=== PATIENT | male | born 1965 | race Caucasian/White ===

== ENCOUNTER 2021-08-10 15:30 | Inpatient (IN) | payer OTHER, MEDICAID, SELFPAY ==
[~2021-08-10] VITALS: Ht 177.8 cm; Wt 72.6 kg
[2021-08-10 15:33] VITALS: BP 132/75
--- NOTE | 2021-08-10 15:47 | NUR ---
LAB AT BEDSIDE COLLECTING BLOODWORK
--- NOTE | 2021-08-10 15:52 | NUR ---
SUNDAY VELEZ COLLECTED AND HANDED TO FITTER PLACER BEDSIDE
--- NOTE | 2021-08-10 15:53 | NUR ---
56 y/o male biba from [facility], pt reported to have low glucose, on scene glucose was 63, pt was given oral glucose with glucagon 1mg IM. [facility] reports their accucheck stated error 3x post glucose. Upon arrival pt glucose 90. Pt is A&Ox3 and GCS 15 at this time. Pt is verbal, but experincing lethargy and general weakness at this time. Skin is dry and intact, but bruising noted on patient R arm. Dialysis shunt noted on pt L upper chest and L arm. Edema noted on bilateral LE, non-pitting, +1. Pt denies any CP, SOB, N/V, Fever/Chills, Couch at this time. No pain noted. HOB of elevated, pt placed on bedside litigation paralegal, and bedrails x2 up. ERMD made aware of patient status. pmh: htn, dm2, parkinsons, esrd nka
--- NOTE | 2021-08-10 16:14 | NUR ---
XRAY AT PATIENT BEDSIDE
[2021-08-10 16:31] LABS: PROTHROMBIN TIME 12.1 secs (10.8-13.4)
[2021-08-10 16:32] LABS: ALBUMIN 1.9 g/dL (3.4-5.0); ANION GAP 12.4 (8-16); CARBON DIOXIDE 27.3 mmol/L (21-32); POTASSIUM 4.7 mmol/L (3.5-5.1); TOTAL BILIRUBIN 0.3 mg/dL (0.0-1.0)
[2021-08-10 16:35] LABS: BASOPHILS # (AUTO) 0.2 K/uL (0.00-0.22); BASOPHILS % (AUTO) 2.4 % (0.0-2.0); EOSINOPHILS # (AUTO) 0.2 K/uL (0-0.4); EOSINOPHILS % (AUTO) 2.7 % (0.0-4.0); HEMATOCRIT 30.3 % (36-52); HEMOGLOBIN 10.1 g/dL (12.0-18.0); LYMPHOCYTES # (AUTO) 0.8 K/uL (2.0-11.5); LYMPHOCYTES % (AUTO) 11.4 % (20.5-51.1); MEAN CORPUSCULAR HEMOGLOBIN 32 pg (27-31); MEAN CORPUSCULAR HGB CONC 33 g/dL (33-37); MEAN CORPUSCULAR VOLUME 95.7 fL (80-94); MONOCYTES # (AUTO) 0.5 K/uL (0.8-1.0); MONOCYTES % (AUTO) 6.6 % (1.7-9.3); NEUTROPHILS # (AUTO) 5.5 K/uL (1.8-7.7); NEUTROPHILS % (AUTO) 76.9 % (42.2-75.2); PLATELET COUNT (AUTO) 242 K/uL (140-450); RED BLOOD CELL COUNT(AUTO) 3.17 MIL/uL (4.20-6.10); RED CELL DISTRIBUTION WIDTH 16.2 % (11.6-13.7); WHITE BLOOD COUNT (AUTO) 7.1 K/uL (4.8-10.8)
[2021-08-10 16:45] LABS: CREATININE 5.3 mg/dL (0.6-1.3)
[2021-08-10] MEDS ORDERED: MIRABULK PO (17:13)
[2021-08-10] MEDS ORDERED: ZINC50TA76 PO (17:13)
[2021-08-10] MEDS ORDERED: ASCO500T95 PO (17:13)
[2021-08-10] MEDS ORDERED: TUBE5SOL28 TD (17:13)
[2021-08-10] MEDS ORDERED: HUMSLIDE (17:13)
[2021-08-10] MEDS ORDERED: VALP-22 PO (17:13)
[2021-08-10] MEDS ORDERED: ATOR40TA PO (17:13)
[2021-08-10] MEDS ORDERED: KEP500 PO (17:13)
[2021-08-10] MEDS ORDERED: ONDA-188 PO (17:13)
[2021-08-10] MEDS ORDERED: ASPI-1205 PO (17:13)
[2021-08-10] MEDS ORDERED: SEVE800T6 PO (17:13)
[2021-08-10] MEDS ORDERED: PAX10 PO (17:13)
[2021-08-10] MEDS ORDERED: ACET-8386 PO (17:13)
[2021-08-10] MEDS ORDERED: PANT40EC PO (17:13)
[2021-08-10] MEDS ORDERED: AMLO10TA PO (17:13)
[2021-08-10] MEDS ORDERED: AMAN-72 PO (17:13)
[2021-08-10] MEDS ORDERED: AMOX-999 PO (17:13)
[2021-08-10] MEDS ORDERED: BUS5 PO (17:13)
--- NOTE | 2021-08-10 17:43 | NUR ---
Patient appears to be resting comfortably in bed. Vital Signs within normal limits. Respirations even and unlabored.
--- NOTE | 2021-08-10 19:20 | NUR ---
Pt report given to ANTONY HINSON. Transfer of care at this time.
--- NOTE | 2021-08-10 19:48 | NUR ---
Changed and cleaned patient, Patient had water diarrhea X one episode, Patient reported, had diarrhea today since received medication for constipation yesterday.
--- NOTE | 2021-08-10 20:21 | NUR ---
Patient had abdominal pain, pain rate 8/10, Dr. Main notified.
[2021-08-10] MEDS ORDERED: MORPHINE SULFATE 2 MG/ML SYR IVP ONE (20:35)
--- NOTE | 2021-08-10 20:50 | NUR ---
Accu check 87, Dr. Main notified.
--- NOTE | 2021-08-10 21:02 | NUR ---
Patient transfer to CT scan via gurney with doctor of radiology.
--- NOTE | 2021-08-10 21:18 | NUR ---
Patient returned from CT scan.
[2021-08-10] MEDS ORDERED: DEXT 5% / NACL 0.9% 1,000 ML IV SCH (21:50)
[2021-08-10] MEDS ORDERED: INSULIN LISPRO SLIDING SCALE 100 UNITS/ML VIAL SUBQ PRN (21:50)
[2021-08-10] MEDS ORDERED: BLOOD GLUCOSE MONITORING 1 DEV DEV FS SCH (21:50)
--- NOTE | 2021-08-10 22:35 | NUR ---
Patient will be admitted to care of Dr. Langford. Admited to TELE. Will go to room 112A. Belongings list completed. Report to ANTONY Mckeon.
[2021-08-10 23:00] VITALS: BP 199/91
--- NOTE | 2021-08-10 23:00 | NUR ---
RECEIVED PATIENT FROM ER, TRANSFERRED TO BED SAFELY. VS TAKEN AND RECORDED. TELEMONITORING INITIATED., SR NOTED. PATIENT CRYING AND YELLING FOR SEVERE ABDOMINAL PAIN. MD MADE AWARE, AWAITING ORDER. ADMISSION DOCUMENTATION DONE. IV FLUIDS STARTED ORDERED.WILL CONTINUE TO MONITOR PATIENT.
[2021-08-10] MEDS ORDERED: MORPHINE SULFATE 2 MG/ML SYR IVP PRN (23:20)
[2021-08-10] MEDS ORDERED: MORPHINE SULFATE 2 MG/ML SYR IVP SCH (23:25)
[2021-08-10] MEDS ORDERED: MORPHINE SULFATE 2 MG/ML SYR ONE (23:25)
[2021-08-10] MEDS ORDERED: ONDANSETRON 4 MG/2 ML VIAL IVP PRN (23:40)
[2021-08-11] MEDS ORDERED: CLONIDINE HYDROCHLORIDE 0.1 MG TAB PO PRN (00:25)
--- NOTE | 2021-08-11 01:10 | NUR ---
PATIENT MEDICATED FOR NAUSEA AND PAIN. BP ELEVATED, MD MADE AWARE AND GIVEN CLONIDINE ORDERED. WILL CONTINUE TO MONITOR AND ASSESS PATIENT.
[2021-08-11 04:00] VITALS: BP 156/94
--- NOTE | 2021-08-11 04:10 | NUR ---
MRSA NARES AND UA COLLECTED AND SENT TO LAB.
[2021-08-11 06:10] LABS: APPEARANCE,URINE CLEAR (CLEAR); BILIRUBIN,URINE NEGATIVE (NEGATIVE); BLOOD, URINE 1+ (NEGATIVE); COLOR,URINE YELLOW (YELLOW); LEUKOCYTE ESTERASE ,URINE 2+ (NEGATIVE); NITRITE, URINE NEGATIVE (NEGATIVE); UGLUCOSE NEGATIVE (NEGATIVE)
[2021-08-11] MEDS: BLOOD GLUCOSE MONITORING 1 DEV DEV FS SCH ×4 (06:53→20:18)
[2021-08-11] MEDS ORDERED: MAG SULF 2000 MG/WATER PREMIX 50 ML IV PRN (07:05)
[2021-08-11] MEDS ORDERED: DOCUSATE SODIUM 100 MG GELCAP PO PRN (07:05)
[2021-08-11] MEDS ORDERED: POTASSIUM CHLORIDE 10 MEQ TABER PO PRN (07:05)
[2021-08-11] MEDS ORDERED: LORazepam 2 MG/ML VIAL IVP PRN (07:05)
[2021-08-11] MEDS ORDERED: busPIRone 5 MG TAB PO PRN (07:05)
[2021-08-11] MEDS ORDERED: ACETAMINOPHEN 325 MG TAB PO PRN (07:05)
[2021-08-11] MEDS ORDERED: ZOLPIDEM 10 MG TAB PO PRN (07:05)
--- NOTE | 2021-08-11 07:46 | NUR ---
RECEIVED REPORT FROM NURSE TRANSITIONAL NURSE. PT STABLE
[2021-08-11 08:00] VITALS: BP 161/77
[2021-08-11] MEDS: ASPIRIN 81 MG TAB.CHEW PO SCH (08:24)
[2021-08-11] MEDS: ASCORBIC ACID 500 MG TAB PO SCH (08:24)
[2021-08-11] MEDS: ZINC SULF 220 MG CAP PO SCH (08:25)
[2021-08-11] MEDS: SEVELAMER CARBONATE 800 MG TAB PO SCH ×3 (08:25→17:03)
[2021-08-11] MEDS: amLODIPine 5 MG TAB PO SCH (08:25)
[2021-08-11] MEDS: levETIRAcetam 100 MG/ML ORASYR PO SCH ×3 (08:26→17:03)
[2021-08-11] MEDS: VALPROIC ACID 250 MG/5 ML UDC PO SCH ×2 (08:26→20:19)
[2021-08-11] MEDS: PARoxetine 10 MG TAB PO SCH (08:26)
[2021-08-11] MEDS: POLYETHYLENE GLYCOL 17 GM/PKT PO SCH (08:27)
[2021-08-11] MEDS ORDERED: ZINC 200 MG PO SCH (09:00)
[2021-08-11] MEDS ORDERED: AMANTADINE 100 MG CAP PO SCH (09:00)
--- NOTE | 2021-08-11 09:21 | NUR ---
PATIENT HAS BEEN SCREENED AND CATEGORIZED HIGH NUTRITION RISK. PATIENT WILL BE SEEN WITHIN 1-2 DAYS OF ADMISSION. SCARLET H[address]MON[address] RD Addendum: 08/11/21 at [address] RECEIVED REFERRAL AND CONSULT FOR UNCONTROLLED DIABETES AND PRESSURE INJURY
[2021-08-11] MEDS: MORPHINE SULFATE 2 MG/ML SYR IVP PRN ×3 (10:07→22:09)
[2021-08-11] MEDS: ONDANSETRON 4 MG/2 ML VIAL IVP PRN ×2 (10:07→20:18)
--- NOTE | 2021-08-11 10:32 | NUR ---
MEDICATED PT FOR PAIN AND NAUSEA. PT STATED HE IS UNABLE TO "HANDLE SOLID FOODS". WOUND CARE WAS PERFORMED WITH WOUND CARE NURSE MILES. PT TOLERATED WELL. CALL LIGHT IN REACH. ALL SAFETY MEASURES IN PLACE
[2021-08-11 12:00] VITALS: BP 141/39
--- NOTE | 2021-08-11 12:07 | NUR ---
WOUND CARE EVALUATION NOTE: SKIN ASSESSMENT DONE WITH PRIMARY RN, PT. ADMITTED WITH PRESSURE INJURY TO [facility] AND SHARIF SCALE AT HIGH RISK, PT. IS AAX4 , VERBALIZES NEEDS AND UNDERSTANDING OF WOUND CARE PLAN AND INTERVENTIONS FOR PRESSURE INJURY MANAGEMENT. LEFT UPPER EXTREMITY AV FISTULA WITH PALPABLE THRILL. SKIN INTACT. BOWEL AND BLADDER INCONTINENT. MULTIPLE DRY SCABS AND OLD HEALED SCARS TISSUE TO BILATERAL LOWER LEGS. POC DISCUSSED WITH PRIMARY RN. COMORBIDITIES RELATED TO DELAY WOUND HEALING AND FURTHER SKIN BREAKS INFECTION, DM, ANEMIA. CKD WITH HD. DECREASE MOBILITY AND FUNCTIONAL ABILITIES AND HOB ELEVATED THE MAJORITY OF TIMES DUE TO MEDICAL REASONS. INTEGUMENTARY: -PRESSURE INJURY STAGE 4 TO SACRAL COCCYX [id number] UNDERMINING FROM 7 OCLOCK TO 12 OCLOCK 2.8CM DEEP, WOUND BED 70 % GRANULATION TISSUE WITH 30 % THIN LOOSE YELLOW SLOUGH TISSUE, MODERATE AMOUNT SEROUS DRAINAGE, NO ODOR, CAROLYN- WOUND SKIN BLANCHABLE REDNESS MOIST AND INTACT. -GROINS AND SCROTAL AREA, SKIN MOIST AND INTACT -BILATERAL HEELS DRY CALLUS, COLD TO TOUCH RECOMMENDATIONS -SACRALCOCCYX WOUND CX -CLEANSE SACRAL COCCYX WITH WOUND CARE SOLUTION, PACK WOUND WITH THERAHONEY DRESSING SHEET AND COVER WITH ABD PAD, SECURED WITH TAPE QD AND PRN IF SOILING -APPLY SKIN PREP TO BILATERAL HEELS BID AND AEROPLANE PILOT -APPLY HYDRAGUARD TO GROINS AND SCROTAL AREAS BID AND PRN IF SOILING -TURN AND REPOSITION PATIENT Q 2H -ASSESS AND MONITOR SKIN CONDITION DURING POSITION CHANGE -OFFLOAD BILATERAL HEELS BY PLACING PILLOWS UNDER CALVES AT ALL TIMES, UNLESS OTHERWISE CONTRAINDICATED -PRESSURE REDISTRIBUTION SURFACE THERAPY -KEEP SKIN CLEAN AND DRY AT ALL TIMES.
--- NOTE | 2021-08-11 12:19 | NUR ---
INSULIN HELD PER MD. BG 158. DR. SCHREIBER STATED HE IS OK WITH BG OVER 150 TO REDUCE CHANCE OF PT BECOMING HYPOGLYCEMIC
[2021-08-11] MEDS: HYDRAGUARD CREAM TP SCH (12:41)
[2021-08-11] MEDS: THERAHONEY WOUND DRESSING TP SCH (12:42)
--- NOTE | 2021-08-11 12:44 | NUR ---
SPOKE TO DR MIKAELA MD TO ORDER DIALYSIS FOR TODAY. DIALYSIS NURSE NOTIFIED
[2021-08-11] MEDS ORDERED: THERAHONEY WOUND DRESSING TP SCH (13:00)
--- NOTE | 2021-08-11 13:49 | NUR ---
08/11/21 RD INITIAL ASSESSMENT COMPLETED PLEASE REFER TO NUTRITION ASSESSMENT UNDER CARE ACTIVITY FOR ESTIMATED NUTRITIONAL NEEDS. 1. CONTINUE RENAL DIET TOLERATED 2. RECOMMEND NEPRO AND CONNOR BID PER RD PROTOCOL 3. MONITOR BLOOD GLUCOSE LEVELS AND PO INTAKE 4. RD TO FOLLOW-UP 3-5 DAYS, MODERATE RISK CHRISTIAN HAMMOND, RD
--- NOTE | 2021-08-11 14:07 | NUR ---
DIALYSIS NURSE AT BEDSIDE. NO S/S OF DISTRESS. CALL LIGHT IN REACH. ALL SAFETY MEASURES IN PLACE
--- NOTE | 2021-08-11 14:17 | NUR ---
DC PLANNING: THE PATIENT PRESENTED FROM [facility] WITH C/O HYPOGLYCEMIA AND ALOC. H/O DM, ESRD, PARKINSONS AND HTN. GLUCOSE IN THE FIELD 40-50, GIVEN GLUCAGON. NEPHROLOGY CONSULT, UA + FOR BACTERIA AND WBC'S, STARTED ON ROCEPHIN. CM SPOKE WITH THE PATIENT AT BEDSIDE, HE STATES THAT HE'S BEEN AT [facility] FOR ONE DAY BUT DOESN'T KNOW WHY HE'S THERE AND WANTS TO GET BACK TO THE [facility]. STATED THAT CM COULD CALL HIS GIRLFRIEND SABINE ([phone]) DID NOT WANT CM TO CALL HIS DAUGHTER FARHAN WHO IS HIS PRIMARY CONTACT ON THE FACE SHEET. DANNY THEN SPOKE WITH XIOMARA AT [facility], CONFIRMED THAT PATIENT WAS RECEIVED BY THEM FROM [facility] AND WAS AT [facility] PRIOR TO THAT. HE DID NOT WANT TO RETURN TO [facility] AND WAS PLACED IN [place].THE PATIENT GOES TO [facility] ON ,, FROM 4:30 AM TO 8 AM AND USES [facility] TRANSPORT. CM CALLED HIS GIRLFRIEND BUT THERE WAS NO ANSWER. DC PLAN IS TO RETURN TO [facility], PER XIOMARA THEY ARE WORKING ON SENDING HIM TO A SISTER FACILITY CLOSER TO [place]. CM WILL FOLLOW.
[2021-08-11 16:00] VITALS: BP 160/27
--- NOTE | 2021-08-11 19:38 | NUR ---
ENDORSED PT TO TOTER NURSE.
[2021-08-11 20:00] VITALS: BP 164/42
[2021-08-11] MEDS: ATORVASTATIN 20 MG TAB PO SCH (20:19)
[2021-08-12] VITALS: BP 145/43
[2021-08-12] MEDS: HYDRAGUARD CREAM TP SCH ×2 (00:40→13:09)
[2021-08-12 04:00] VITALS: BP 158/48
[2021-08-12] MEDS: BLOOD GLUCOSE MONITORING 1 DEV DEV FS SCH ×4 (05:44→21:00)
[2021-08-12] MEDS: MORPHINE SULFATE 2 MG/ML SYR IVP PRN ×2 (06:02→10:05)
--- NOTE | 2021-08-12 06:59 | NUR ---
PER LAB NEED NEW ORDER FOR CX. NEW AEROBIC CX ORDER PLACED.
[2021-08-12 07:08] LABS: BASOPHILS # (AUTO) 0.2 K/uL (0.00-0.22); BASOPHILS % (AUTO) 2.5 % (0.0-2.0); EOSINOPHILS # (AUTO) 0.3 K/uL (0-0.4); EOSINOPHILS % (AUTO) 4.2 % (0.0-4.0); HEMATOCRIT 25.8 % (36-52); HEMOGLOBIN 8.7 g/dL (12.0-18.0); LYMPHOCYTES # (AUTO) 1.3 K/uL (2.0-11.5); LYMPHOCYTES % (AUTO) 17.6 % (20.5-51.1); MEAN CORPUSCULAR HEMOGLOBIN 32 pg (27-31); MEAN CORPUSCULAR HGB CONC 34 g/dL (33-37); MEAN CORPUSCULAR VOLUME 95.1 fL (80-94); MONOCYTES # (AUTO) 0.6 K/uL (0.8-1.0); MONOCYTES % (AUTO) 8.4 % (1.7-9.3); NEUTROPHILS # (AUTO) 4.8 K/uL (1.8-7.7); NEUTROPHILS % (AUTO) 67.3 % (42.2-75.2); PLATELET COUNT (AUTO) 226 K/uL (140-450); RED BLOOD CELL COUNT(AUTO) 2.71 MIL/uL (4.20-6.10); RED CELL DISTRIBUTION WIDTH 16.8 % (11.6-13.7); WHITE BLOOD COUNT (AUTO) 7.1 K/uL (4.8-10.8)
--- NOTE | 2021-08-12 07:30 | NUR ---
RECEIVED REPORT FROM CAMPUS WELLNESS COORDINATOR NURSE.
[2021-08-12 08:00] VITALS: BP 167/57
[2021-08-12 08:19] LABS: ANION GAP 9.3 (8-16); CARBON DIOXIDE 29.4 mmol/L (21-32); POTASSIUM 4.7 mmol/L (3.5-5.1)
[2021-08-12 08:45] LABS: CREATININE 4.3 mg/dL (0.6-1.3)
[2021-08-12] MEDS: ONDANSETRON 4 MG/2 ML VIAL IVP PRN ×3 (09:27→23:32)
[2021-08-12] MEDS: ASCORBIC ACID 500 MG TAB PO SCH (09:31)
[2021-08-12] MEDS: ASPIRIN 81 MG TAB.CHEW PO SCH (09:31)
[2021-08-12] MEDS: PARoxetine 10 MG TAB PO SCH (09:32)
[2021-08-12] MEDS: SEVELAMER CARBONATE 800 MG TAB PO SCH ×3 (09:33→17:31)
[2021-08-12] MEDS: ZINC SULF 220 MG CAP PO SCH (09:33)
[2021-08-12] MEDS: VIT-B COMP/VIT-C/FOLIC ACID 1 TAB PO SCH (09:33)
[2021-08-12] MEDS: VALPROIC ACID 250 MG/5 ML UDC PO SCH ×2 (09:33→21:21)
[2021-08-12] MEDS: amLODIPine 5 MG TAB PO SCH (09:34)
[2021-08-12] MEDS: POLYETHYLENE GLYCOL 17 GM/PKT PO SCH (09:34)
[2021-08-12] MEDS: levETIRAcetam 100 MG/ML ORASYR PO SCH ×3 (09:36→17:31)
--- NOTE | 2021-08-12 09:46 | NUR ---
PT COMPLAINED OF NAUSEA AND PAIN 02/17 IN ABD. WILL MEDICATE WHEN DUE. PT STABLE. CALL LIGHT IN REACH.. ALL SAFETY MEASURES IN PLACE
[2021-08-12 12:00] VITALS: BP 151/56
--- NOTE | 2021-08-12 12:02 | NUR ---
P.T. NOTES P.T. EVAL COMPLETED; REFER TO EVAL FOR DETAILS.
[2021-08-12] MEDS ORDERED: MORPHINE SULFATE 2 MG/ML SYR IVP PRN ×2 (12:40→12:45)
[2021-08-12] MEDS: THERAHONEY WOUND DRESSING TP SCH (13:09)
[2021-08-12] MEDS: MORPHINE SULFATE 4 MG/ML SYR IVP PRN ×2 (14:37→21:33)
--- NOTE | 2021-08-12 14:42 | NUR ---
PT COMPLAINED OF PAIN. MEDICATED FOR PAIN. ORDER ENTERED FOR LABS AND KUB. AWAITING RESULTS
[2021-08-12 15:00] LABS: AMYLASE 18 U/L (25-115); LIPASE 6 U/L (73-393)
[2021-08-12 16:00] VITALS: BP 148/44
--- NOTE | 2021-08-12 17:52 | NUR ---
PT COMPLAINED OF NAUSEA. PT MEDICATED AND EDUCATED ON POSITIONING FOR REDUCED NAUSEA. PT VERBALIZED UNDERSTANDING. CALL LIGHT IN REACH. ALL SAFETY MEASURES IN PLACE
--- NOTE | 2021-08-12 19:35 | NUR ---
ENDORSED PT TO APPAREL CUTTER NURSE.
[2021-08-12 20:00] VITALS: BP 158/45
[2021-08-12] MEDS ORDERED: MUPIROCIN CA NASAL 2% 1GM TUBE NS SCH (21:15)
[2021-08-12] MEDS ORDERED: CHLORHEXADINE GLUC 2% CLOTH TP SCH (21:15)
[2021-08-12] MEDS: ATORVASTATIN 20 MG TAB PO SCH (21:23)
[2021-08-13] VITALS: BP 168/38
[2021-08-13] MEDS: HYDRAGUARD CREAM TP SCH ×2 (01:00→13:00)
[2021-08-13 04:00] VITALS: BP_SYST 143; BP_SYST 170; BP_DIAS 47; BP_DIAS 68
[2021-08-13] MEDS: ONDANSETRON 4 MG/2 ML VIAL IVP PRN ×2 (06:56→13:23)
[2021-08-13] MEDS: MORPHINE SULFATE 4 MG/ML SYR IVP PRN (06:56)
[2021-08-13 07:05] LABS: BASOPHILS # (AUTO) 0.2 K/uL (0.00-0.22); BASOPHILS % (AUTO) 2.6 % (0.0-2.0); EOSINOPHILS # (AUTO) 0.4 K/uL (0-0.4); EOSINOPHILS % (AUTO) 6.7 % (0.0-4.0); HEMATOCRIT 27.6 % (36-52); HEMOGLOBIN 9.4 g/dL (12.0-18.0); LYMPHOCYTES # (AUTO) 1.5 K/uL (2.0-11.5); LYMPHOCYTES % (AUTO) 23.2 % (20.5-51.1); MEAN CORPUSCULAR HEMOGLOBIN 32 pg (27-31); MEAN CORPUSCULAR HGB CONC 34 g/dL (33-37); MEAN CORPUSCULAR VOLUME 94.2 fL (80-94); MONOCYTES # (AUTO) 0.5 K/uL (0.8-1.0); MONOCYTES % (AUTO) 8.4 % (1.7-9.3); NEUTROPHILS # (AUTO) 3.8 K/uL (1.8-7.7); NEUTROPHILS % (AUTO) 59.1 % (42.2-75.2); PLATELET COUNT (AUTO) 209 K/uL (140-450); RED BLOOD CELL COUNT(AUTO) 2.93 MIL/uL (4.20-6.10); RED CELL DISTRIBUTION WIDTH 16.2 % (11.6-13.7); WHITE BLOOD COUNT (AUTO) 6.4 K/uL (4.8-10.8)
[2021-08-13] MEDS: BLOOD GLUCOSE MONITORING 1 DEV DEV FS SCH ×3 (07:20→16:48)
[2021-08-13 07:21] LABS: ANION GAP 8.6 (8-16); CARBON DIOXIDE 30.1 mmol/L (21-32); POTASSIUM 4.7 mmol/L (3.5-5.1)
[2021-08-13 07:32] LABS: CREATININE 5.6 mg/dL (0.6-1.3)
--- NOTE | 2021-08-13 07:40 | NUR ---
RECEIVED REPORT FROM OBSTETRICS/GYNECOLOGY NURSE NURSE. RN ENDORSED PT'S BLOOD SUGAR IS 58, APPLE JUICE WAS GIVEN PER REPORT. PT DOESN'T HAVE PRN D50, DR SCHREIBER DOING ROUNDS AND MADE AWARE WITH ORDER FOR PRN D50. ALSO MADE AWARE OF CH CREATININE 5.3. DR STRATTON, CONSULTING GOVERNMENT RELATIONS DIRECTOR ALSO MADE AWARE OF CREATININE LEVEL. PT AWAKE IN BED. BREATHING SYMMETRICAL. FLACC O. CALL LIGHT WITHIN REACH. ALL SAFETY MEASURES IN PLACE.
[2021-08-13] MEDS ORDERED: DEXTROSE 50% 50 ML SYR IVP PRN ×2 (07:50→08:25)
[2021-08-13 08:00] VITALS: BP 137/46
--- NOTE | 2021-08-13 08:00 | NUR ---
RE-CHECKED PT'S BLOOD SUGAR, WENT UP TO 70. PRN D50 NOT NEEDED AT THIS TIME. PT IS ASYMPTOMATIC, AWAKE AND ALERT. WILL CONTINUE TO MONITOR.
[2021-08-13] MEDS ORDERED: DEXT 5% /NACL 0.9% 1,000 ML IV SCH (08:25)
[2021-08-13] MEDS: POLYETHYLENE GLYCOL 17 GM/PKT PO SCH (09:00)
[2021-08-13] MEDS: levETIRAcetam 100 MG/ML ORASYR PO SCH ×3 (09:00→17:00)
[2021-08-13] MEDS: ZINC SULF 220 MG CAP PO SCH (09:35)
[2021-08-13] MEDS: ASCORBIC ACID 500 MG TAB PO SCH (09:35)
[2021-08-13] MEDS: amLODIPine 5 MG TAB PO SCH (09:35)
[2021-08-13] MEDS: VIT-B COMP/VIT-C/FOLIC ACID 1 TAB PO SCH (09:36)
[2021-08-13] MEDS: SEVELAMER CARBONATE 800 MG TAB PO SCH ×3 (09:36→17:11)
[2021-08-13] MEDS: ASPIRIN 81 MG TAB.CHEW PO SCH (09:36)
[2021-08-13] MEDS: PARoxetine 10 MG TAB PO SCH (09:36)
[2021-08-13] MEDS: VALPROIC ACID 250 MG/5 ML UDC PO SCH (09:37)
--- NOTE | 2021-08-13 11:54 | NUR ---
PT MADE AWARE OF DISCHARGE ORDER. PT STATED TO ONLY CALL SABINE (JENNIFER) AND NOT THE DAUGHTER (FARHAN). CALLED SABINE [phone], DIDN'T ANSWER, LEFT MESSAGE. CALLED [facility], SPOKE WITH SHAHZAD TO OBTAIN PT'S ROOM NUMBER, PT WILL BE GOING TO ROOM 18B.
[2021-08-13 12:00] VITALS: BP 144/54
--- NOTE | 2021-08-13 12:32 | NUR ---
CONTACTED [facility] TRANSPORTATION TO ARRANGE TRANSPORT FOR PATIENT. PICKUP TIME IS AT 1622 AND WILL BE TRANSPORTED BACK TO [facility] IN ROOM 18-B Addendum: 08/13/21 at 1245 by Simeon So RN RN RESERVATION #[id number]. TRANSPORTATION CALL BACK NUMBER IS [phone]
[2021-08-13] MEDS: THERAHONEY WOUND DRESSING TP SCH (13:00)
--- NOTE | 2021-08-13 13:12 | NUR ---
CALLED SABINE ESPARZA) AGAIN AND MADE AWARE OF PT'S DISCHARGE BACK TO [facility].
--- NOTE | 2021-08-13 13:20 | NUR ---
PT PULLED OUT IV LINE ON RAC. RE-INSERTED A NEW LINE ON RFA 20G, NO S/SX OF INFILTRATION NOTED.
--- NOTE | 2021-08-13 15:20 | NUR ---
CALLED [facility] AND SPOKE WITH LARRY TO GIVE REPORT.
[2021-08-13 16:00] VITALS: BP 154/45
--- NOTE | 2021-08-13 16:19 | NUR ---
PT PULLED OUT RFA IV LINE AGAIN. PT IS FOR DISCHARGE, AWAITING STOPPERER ASSEMBLER AT 1622.
--- NOTE | 2021-08-13 16:59 | NUR ---
FOLLOW UP CALL MADE TO [facility] TRANSPORTATION REGARDING BEAUTY THERAPIST, SPOKE WITH LEONORA. BEAUTY THERAPIST TIME IS MOVED TO 1830. PT AWARE.
--- NOTE | 2021-08-13 18:46 | NUR ---
PT DISCHARGED TO [facility] VIA [facility] TRANSPORT WITH BELONGINGS AND PAPERWORKS, IN STABLE CONDITION.
[2021-08-14] MEDS ORDERED: EPOETIN ALFA-EPBX 10,000 UNITS/ML VIAL SUBQ SCH (09:00)
== END 2021-08-13 18:45 | DRG 637 ==
LOC: MED 15:30 → MTU 21:54
PROVIDERS: ADMIT General Practice; ATTEND General Practice
PROC: 5A1D70Z Performance of Urinary Filtration, Intermittent, Less than 6 Hours Per Day (ICD-10-PCS; principal; 2021-08-11)
DX: E11.649 Type 2 diabetes mellitus with hypoglycemia without coma (principal); E43 Unspecified severe protein-calorie malnutrition; G93.41 Metabolic encephalopathy; I12.0 Hypertensive chronic kidney disease with stage 5 chronic kidney disease or end stage renal disease; N39.0 Urinary tract infection, site not specified; E11.22 Type 2 diabetes mellitus with diabetic chronic kidney disease; N17.0 Acute kidney failure with tubular necrosis; N18.6 End stage renal disease; D63.8 Anemia in other chronic diseases classified elsewhere; Z20.822 Contact with and (suspected) exposure to COVID-19; L89.159 Pressure ulcer of sacral region, unspecified stage; K21.9 Gastro-esophageal reflux disease without esophagitis; E83.52 Hypercalcemia; G20 Parkinson's disease; E78.5 Hyperlipidemia, unspecified; F32.A Depression, unspecified; Z90.49 Acquired absence of other specified parts of digestive tract; Z68.23 Body mass index [BMI] 23.0-23.9, adult; Z89.421 Acquired absence of other right toe(s); Z87.828 Personal history of other (healed) physical injury and trauma; Z79.899 Other long term (current) drug therapy; Z79.82 Long term (current) use of aspirin
CPT/HCPCS: 36415; 71045; 74018; 80048; 80053; 81001; 82150; 82550; 82948; 83036; 83605; 83690; 83735; 84100; 84484; 85025; 85610; 85730; 86886; 86900; 86901; 87040; 87070; 87081; 87086; 87186; 93005; 96374; 97112; 97163-GP; 99291; J0696; J1644; J2060; J2270; J2405; J7060; Q0092

== ENCOUNTER 2021-09-09 13:40 | Inpatient (IN) | payer OTHER, MEDICAID, SELFPAY ==
[~2021-09-09] VITALS: Ht 167.6 cm; Wt 72.6 kg
[~2021-09-09 13:40] MED LIST: ACET-8386 PO; AMAN-72 PO; AMLO10TA PO; ASCO500T95 PO; ASPI-1205 PO; ATOR40TA PO; BUS5 PO; KEP500 PO; MIRABULK PO; ONDA-188 PO; PANT40EC PO; PAX10 PO; SEVE800T6 PO; TUBE5SOL28 TD; VALP-22 PO; ZINC50TA76 PO
--- NOTE | 2021-09-09 13:43 | NUR ---
BIBA BLS TO ER BED 9
[2021-09-09 13:44] VITALS: BP 144/76
--- NOTE | 2021-09-09 13:56 | NUR ---
56 Y/O Male BIBA for "missed H/D" Pt is AOX 4, able to make needs known, resp even and unlabored. Denies SOB. Edema noted to BUE/BLE +3. A/V Shunt to left arm noted with +B/T heard upon auscultation. ADI Midline noted, pt denies pain at site. PmHx: ESRD, schizo affective, seizures, DM, MDD, HTN Allergies: Metformin Home meds: See Chart
--- NOTE | 2021-09-09 14:10 | NUR ---
Radiology at bedside to perform CXR
[2021-09-09 14:35] LABS: ALBUMIN 1.7 g/dL (3.4-5.0); ANION GAP 10.5 (8-16); CARBON DIOXIDE 29.9 mmol/L (21-32); POTASSIUM 4.4 mmol/L (3.5-5.1); TOTAL BILIRUBIN 0.3 mg/dL (0.0-1.0)
[2021-09-09 14:54] LABS: BASOPHILS # (AUTO) 0.1 K/uL (0.00-0.22); BASOPHILS % (AUTO) 1.3 % (0.0-2.0); EOSINOPHILS # (AUTO) 0.4 K/uL (0-0.4); EOSINOPHILS % (AUTO) 6.7 % (0.0-4.0); HEMATOCRIT 27.4 % (36-52); HEMOGLOBIN 8.6 g/dL (12.0-18.0); LYMPHOCYTES # (AUTO) 1.3 K/uL (2.0-11.5); LYMPHOCYTES % (AUTO) 19.1 % (20.5-51.1); MEAN CORPUSCULAR HEMOGLOBIN 31 pg (27-31); MEAN CORPUSCULAR HGB CONC 32 g/dL (33-37); MONOCYTES # (AUTO) 0.8 K/uL (0.8-1.0); MONOCYTES % (AUTO) 11.7 % (1.7-9.3); NEUTROPHILS # (AUTO) 4.1 K/uL (1.8-7.7); NEUTROPHILS % (AUTO) 61.2 % (42.2-75.2); PLATELET COUNT (AUTO) 169 K/uL (140-450); RED BLOOD CELL COUNT(AUTO) 2.79 MIL/uL (4.20-6.10); RED CELL DISTRIBUTION WIDTH 14.9 % (11.6-13.7); WHITE BLOOD COUNT (AUTO) 6.6 K/uL (4.8-10.8)
[2021-09-09 15:06] LABS: CREATININE 7.5 mg/dL (0.6-1.3)
--- NOTE | 2021-09-09 15:15 | NUR ---
COVID-19 swabs collected and sent to lab.
[2021-09-09] MEDS ORDERED: ONDANSETRON 4 MG ODT PO PRN (15:55)
[2021-09-09] MEDS ORDERED: DOCUSATE SODIUM 100 MG GELCAP PO PRN (15:55)
[2021-09-09] MEDS ORDERED: POTASSIUM CHLORIDE 10 MEQ TABER PO PRN (15:55)
[2021-09-09] MEDS ORDERED: amLODIPine 5 MG TAB PO PRN (15:55)
[2021-09-09] MEDS ORDERED: ACETAMINOPHEN 325 MG TAB PO PRN (15:55)
[2021-09-09] MEDS ORDERED: guaiFENesin DM 200/20 MG-10 ML 10 ML UDC PO PRN (15:55)
[2021-09-09] MEDS ORDERED: ZOLPIDEM 5 MG TAB PO PRN (15:55)
[2021-09-09] MEDS ORDERED: busPIRone 5 MG TAB PO PRN (15:55)
[2021-09-09] MEDS ORDERED: ONDANSETRON 4 MG/2 ML VIAL IM/IVP PRN (15:55)
--- NOTE | 2021-09-09 16:03 | NUR ---
Pt report given to TEGAN HARDY. Transfer of care at this time.
[2021-09-09] MEDS ORDERED: MULT-2253 PO (16:09)
[2021-09-09] MEDS ORDERED: FERR325E14 PO (16:09)
[2021-09-09] MEDS ORDERED: CYCL-711 PO (16:09)
[2021-09-09] MEDS ORDERED: ACET-2619 PO (16:09)
[2021-09-09] MEDS ORDERED: NITR0.4S23 SL (16:09)
[2021-09-09] MEDS ORDERED: BUS5 PO (16:09)
[2021-09-09] MEDS ORDERED: MIRABULK PO (16:09)
[2021-09-09] MEDS ORDERED: PAX10 PO (16:09)
[2021-09-09] MEDS ORDERED: LISI-487 PO (16:09)
[2021-09-09] MEDS ORDERED: SEVE800T6 PO (16:09)
[2021-09-09] MEDS ORDERED: VITA1TAB44 PO (16:09)
[2021-09-09] MEDS ORDERED: METO-485 PO (16:09)
[2021-09-09] MEDS ORDERED: SYN.05 PO (16:09)
[2021-09-09] MEDS ORDERED: CARV12.5 PO (16:09)
[2021-09-09] MEDS ORDERED: GABA300C PO (16:09)
[2021-09-09] MEDS ORDERED: ASPI-1822 PO (16:09)
[2021-09-09] MEDS ORDERED: PANT40EC PO (16:09)
[2021-09-09] MEDS ORDERED: ZINC220C9 PO (16:09)
[2021-09-09] MEDS ORDERED: ONDA4SOL8 PO (16:09)
[2021-09-09] MEDS ORDERED: DIVA125E1 PO (16:09)
[2021-09-09] MEDS ORDERED: ATOR40TA PO (16:09)
[2021-09-09] MEDS ORDERED: [UNRECOGNIZED DRUG - CODE] SQ (16:09)
[2021-09-09] MEDS ORDERED: TAMS0.4C96 PO (16:09)
--- NOTE | 2021-09-09 16:09 | NUR ---
Note gunjan in EDM - 09/09/21 at 1648 by FROYLAN Patient will be admitted to care of . Admited to [g ED.ADMIT]. Will go to room[]. Belongings list completed. Report to [].
--- NOTE | 2021-09-09 16:09 | NUR ---
Patient will be admitted to care of . Admited to TELE. Will go to room 114. Belongings list completed. Report to CLINTON HARDY.
--- NOTE | 2021-09-09 16:15 | NUR ---
PATIENT ADMITTED TO ROOM 114 FROM ED VIA GURNEY. PATIENT IS AAOX3, ABLE TO ANSWER QUESTIONS APPROPRIATELY. RIGHT UPPER ARM MIDLINE IV INTACT AND ASYMPTOMATIC, RIGHT UPPER ARM PERIPHERAL IV 18G INTACT AND ASYMPTOMATIC. LEFT UPPER ARM AV SHUNT WITH + BRUIT AND + THRILL. CALL LIGHT PLACED WITHIN REACH. DR. AL NOTIFIED OF ADMISSION, AWAITING FURTHER ORDERS FOR HEMODIALYSIS TX.
[2021-09-09] MEDS ORDERED: SLIDE SUBQ (16:20)
--- NOTE | 2021-09-09 16:30 | NUR ---
Patient noted to have existing wounds upon arrival to ER. Photos taken of wound and placed in chart. Wound covered with dressing. Physician informed.
[2021-09-09 17:18] LABS: CHOL/HDL RATIO 2.1 (1-4.5); FREE T4 (FREE THYROXINE) 0.92 ng/dL (0.76-1.46); PHOSPHORUS 5.3 mg/dL (2.5-4.9); THYROID STIMULATING HORMONE 0.33 uIU/mL (0.34-3.74)
[2021-09-09] MEDS ORDERED: cefTRIAXone 1,000 MG VIAL ONE (17:57)
[2021-09-09] MEDS: levETIRAcetam 500 MG TAB PO SCH (18:10)
[2021-09-09] MEDS: SEVELAMER CARBONATE 800 MG TAB PO SCH (18:10)
[2021-09-09 18:13] LABS: PROTHROMBIN TIME 10.6 secs (10.8-13.4)
[2021-09-09 18:27] VITALS: BP 156/73
--- NOTE | 2021-09-09 19:25 | NUR ---
RECEIVED REPORT FROM MORNING NURSE FOR CONTINUITY OF CARE. [id number] AWAKE AND ALERT, RESTING ON BED. BREATHING EVEN AND UNLABORED, ON ROOM AIR. PATIENT IV SITE ON ADI G 18 INTACT WITH ONGOING ABX ROCEPHIN, INFUSING WELL. PATIENT ALSO HAVE A MIDLINE AT [facility], AWAITING ORDER IF OKAY TO USE. PARVEEN WITH AV FISTULA, + BRUIT, = THRILL. NO COMPLAINTS OF PAIN. WILL CONTINUE TO MONITOR PATIENT.
--- NOTE | 2021-09-09 20:00 | NUR ---
ASSISTED TO THE BATHROOM, USES WALKER, STEADY GAIT OBSERVED. PATIENT HAD A BM AND SAFELY ASSISTED BACK TO BED. PATIENT REFUSED DUE DEPAKENE AND STATED HE DOESN'T HAVE SEIZURE, EDUCATED ON THE NEED FOR HIS HISTORY OF SEIZURE BUT INSISTED HE DOESN'T NEED THE MEDICATION. WILL CONTINUE TO MONITOR PATIENT.
[2021-09-09] MEDS: ATORVASTATIN 20 MG TAB PO SCH (20:14)
[2021-09-09] MEDS: VALPROIC ACID 250 MG/5 ML UDC PO SCH (20:17)
--- NOTE | 2021-09-09 21:00 | NUR ---
MISAEL RN, ALEXANDRO MURILLO. CONSENT FOR MISAEL SHOWN.
--- NOTE | 2021-09-09 23:30 | NUR ---
HD DONE, 2 L OUT. PATIENT RESTING ON BED. NO UNTOWARD S/SX OBSERVED. WILL CONTINUE TO MONITOR PATIENT.
[2021-09-10] VITALS: BP 156/70
[2021-09-10 04:00] VITALS: BP 159/68
[2021-09-10 06:29] LABS: BASOPHILS # (AUTO) 0.1 K/uL (0.00-0.22); EOSINOPHILS # (AUTO) 0.4 K/uL (0-0.4); EOSINOPHILS % (AUTO) 4.8 % (0.0-4.0); HEMATOCRIT 26.3 % (36-52); HEMOGLOBIN 8.6 g/dL (12.0-18.0); LYMPHOCYTES # (AUTO) 1.2 K/uL (2.0-11.5); LYMPHOCYTES % (AUTO) 16.3 % (20.5-51.1); MEAN CORPUSCULAR HEMOGLOBIN 32 pg (27-31); MEAN CORPUSCULAR HGB CONC 33 g/dL (33-37); MEAN CORPUSCULAR VOLUME 96.6 fL (80-94); MONOCYTES # (AUTO) 0.9 K/uL (0.8-1.0); MONOCYTES % (AUTO) 11.6 % (1.7-9.3); NEUTROPHILS # (AUTO) 4.9 K/uL (1.8-7.7); NEUTROPHILS % (AUTO) 66.3 % (42.2-75.2); PLATELET COUNT (AUTO) 174 K/uL (140-450); RED BLOOD CELL COUNT(AUTO) 2.72 MIL/uL (4.20-6.10); WHITE BLOOD COUNT (AUTO) 7.4 K/uL (4.8-10.8)
[2021-09-10 07:05] LABS: ANION GAP 9.3 (8-16); CARBON DIOXIDE 29.3 mmol/L (21-32); POTASSIUM 4.6 mmol/L (3.5-5.1)
--- NOTE | 2021-09-10 07:20 | NUR ---
REPORT GIVEN TO MORNING SHIFT RN FOR CONTINUITY OF CARE. PATIENT STABLE, RESTING ON BED.
--- NOTE | 2021-09-10 07:20 | NUR ---
RECEIVED REPORT FROM EMERGENCY DISPATCHER NURSE FOR CONTINUITY OF CARE. PT ASLEEP IN BED. BREATHING SYMMETRICAL ON ROOM AIR. FLACC O. AV FISTULA ON LEFT ARM. WITH ADI 18G ON SALINE LOCK. CALL LIGHT WITHIN REACH. ALL SAFETY MEASURES IN PLACE.
[2021-09-10 08:00] VITALS: BP 161/82
[2021-09-10] MEDS ORDERED: busPIRone 5 MG TAB PO PRN (08:11)
[2021-09-10 08:27] LABS: CREATININE 5.2 mg/dL (0.6-1.3)
[2021-09-10] MEDS: amLODIPine 5 MG TAB PO PRN (08:47)
[2021-09-10] MEDS: ASPIRIN 81 MG TAB.CHEW PO SCH (08:48)
[2021-09-10] MEDS: SEVELAMER CARBONATE 800 MG TAB PO SCH ×3 (08:48→17:37)
[2021-09-10] MEDS: VIT-B COMP/VIT-C/FOLIC ACID 1 TAB PO SCH (08:50)
[2021-09-10] MEDS: AMANTADINE 100 MG CAP PO SCH (08:51)
[2021-09-10] MEDS: levETIRAcetam 500 MG TAB PO SCH ×3 (08:51→17:00)
[2021-09-10] MEDS: PANTOPRAZOLE 40 MG TABEC PO SCH (08:51)
[2021-09-10] MEDS: VALPROIC ACID 250 MG/5 ML UDC PO SCH ×2 (08:51→21:46)
[2021-09-10] MEDS: PARoxetine 10 MG TAB PO SCH (08:51)
[2021-09-10] MEDS ORDERED: INSULIN LISPRO SLIDING SCALE 100 UNITS/ML VIAL SUBQ PRN (09:00)
[2021-09-10] MEDS ORDERED: DEXTROSE 50% 50 ML SYR IVP PRN (09:00)
--- NOTE | 2021-09-10 09:01 | NUR ---
PT HAS HX OF DIABETES, OBTAINED ORDER FOR ACCUCHECK. ALSO PT HAS ADI MIDLINE 1 LUMEN, PER PT IT WAS PLACED ABOUT A MONTH AGO AT [place] AND HASN'T BEEN USED. ALSO CREATININE IS 5.[address] BHAKTA. ALSO LEFT MESSAGE TO DR AL, CONSULTING ROOM COOLER INSTALLER
--- NOTE | 2021-09-10 10:08 | NUR ---
PER DR BHAKTA IF IV IS GOOD MAY REMOVE MIDLINE. PT'S ADI IV SITE PATENT, INTACT, NO S/SX OF INFILTRATION NOTED. WILL REMOVE MIDLINE.
--- NOTE | 2021-09-10 10:19 | NUR ---
ADI MIDLINE REMOVED, PT TOLERATED WELL, NO C/O PAIN. NO ACTIVE BLEEDING NOTED. WILL CONTINUE TO MONITOR.
[2021-09-10 12:00] VITALS: BP 151/83
[2021-09-10] MEDS: BLOOD GLUCOSE MONITORING 1 DEV DEV FS SCH ×3 (12:19→21:37)
--- NOTE | 2021-09-10 13:42 | NUR ---
PT STATES HE TAKES GABAPENTIN 300MG TID, NO CURRENT ORDER FOR GABAPENTIN MEDICATION. DR BHAKTA MADE AWARE WITH ORDER FOR GABAPENTIN.
[2021-09-10] MEDS: GABAPENTIN 300 MG CAP PO SCH ×2 (13:48→21:47)
--- NOTE | 2021-09-10 14:53 | NUR ---
SPOKE WITH PHARMACIST REGARDING GABAPENTIN DOSING.
--- NOTE | 2021-09-10 15:00 | NUR ---
PT VERBALIZING WANTING TO GET DISCHARGED TODAY, DR BHAKTA MADE AWARE, PT WILL NOT GET DISCHARGED TODAY DUE TO HIGH BNP LEVEL. CARDIO CONSULTED. EXPLAINED TO PT HEALTH RISKS OF GOING AMA, PT VERBALIZED UNDERSTANDING AND WILL STAY. DR BHAKTA AWARE.
[2021-09-10] MEDS: HYDROcodone/APAP 7.5/325 MG 1 TAB PO PRN (15:02)
--- NOTE | 2021-09-10 15:19 | NUR ---
DR VICTORIA MADE AWARE OF CARDIO CONSULT FOR ELEVATED BNP
--- NOTE | 2021-09-10 15:50 | NUR ---
PT ASLEEP IN BED. BREATHING SYMMETRICAL ON ROOM AIR. WITH LAV FISTULA NOTED WITH (+) BRUIT AND THRILL, NO BLEEDING NOTED. CALL LIGHT WITHIN REACH. ALL SAFETY MEASURES IN PLACE.
[2021-09-10 16:00] VITALS: BP 133/73
[2021-09-10] MEDS ORDERED: GABAPENTIN 300 MG CAP PO SCH (17:00)
--- NOTE | 2021-09-10 19:25 | NUR ---
ENDORSED PT TO WELDING MACHINE OPERATOR ELECTRON BEAM NURSE. PT IN STABLE CONDITION
--- NOTE | 2021-09-10 19:26 | NUR ---
RECEIVED PT FROM AM NURSE ON STABLE CONDITION. AWAKE, ALERT, VERBALLY RESPONSIVE AND ABLE TO MAKE NEEDS KNOWN. AV SHUNT ON LEFT UPPER ARM PATENT. SALINE LOCK 18G ON RIGHT UPPER ARM, WELL INTACT, NO S/S OF INFECTION. DENIES PAIN. ALARM AND CALL LIGHT WITHIN REACH. SAFETY MEASURES IN PLACE. CONTINUE TO MONITOR
[2021-09-10 20:00] VITALS: BP 147/68
[2021-09-10] MEDS: ATORVASTATIN 20 MG TAB PO SCH (21:47)
--- NOTE | 2021-09-10 21:47 | NUR ---
MED GIVEN ORDERED
[2021-09-11] VITALS: BP 152/65
[2021-09-11] MEDS: HYDROcodone/APAP 7.5/325 MG 1 TAB PO PRN ×2 (03:00→15:24)
[2021-09-11 04:00] VITALS: BP 157/67
[2021-09-11] MEDS: BLOOD GLUCOSE MONITORING 1 DEV DEV FS SCH ×3 (06:35→16:57)
--- NOTE | 2021-09-11 06:35 | NUR ---
BLOOD SUGAR CHECKED WAS 76, NO INSULIN NEEDED.
--- NOTE | 2021-09-11 07:15 | NUR ---
ENDORSED PATIENT TO AM NURSE FOR CONTINUITY OF CARE. PT IN STABLE CONDITION.
--- NOTE | 2021-09-11 07:38 | NUR ---
RECEIVED ENDORSEMENT FROM PM SHIFT NURSE THAT PT REST IN BED W/ STABLE CONDITION, ADI 18G SALINE LOCK INTACT. DIALYSIS SHUNT AT [facility]. WILL CONTINUE TO MONITOR
[2021-09-11 08:00] VITALS: BP 171/93
[2021-09-11 08:06] LABS: BASOPHILS # (AUTO) 0.1 K/uL (0.00-0.22); BASOPHILS % (AUTO) 2.1 % (0.0-2.0); EOSINOPHILS # (AUTO) 0.4 K/uL (0-0.4); EOSINOPHILS % (AUTO) 6.3 % (0.0-4.0); HEMATOCRIT 25.6 % (36-52); HEMOGLOBIN 8.3 g/dL (12.0-18.0); LYMPHOCYTES # (AUTO) 1.2 K/uL (2.0-11.5); LYMPHOCYTES % (AUTO) 17.9 % (20.5-51.1); MEAN CORPUSCULAR HEMOGLOBIN 31 pg (27-31); MEAN CORPUSCULAR HGB CONC 33 g/dL (33-37); MEAN CORPUSCULAR VOLUME 96.3 fL (80-94); MONOCYTES # (AUTO) 0.7 K/uL (0.8-1.0); MONOCYTES % (AUTO) 10.9 % (1.7-9.3); NEUTROPHILS # (AUTO) 4.1 K/uL (1.8-7.7); NEUTROPHILS % (AUTO) 62.8 % (42.2-75.2); PLATELET COUNT (AUTO) 182 K/uL (140-450); RED BLOOD CELL COUNT(AUTO) 2.66 MIL/uL (4.20-6.10); RED CELL DISTRIBUTION WIDTH 14.3 % (11.6-13.7); WHITE BLOOD COUNT (AUTO) 6.5 K/uL (4.8-10.8)
[2021-09-11 08:07] LABS: T4 (THYROXINE) 4.8 ug/dL (4.5-12.0)
[2021-09-11 08:15] LABS: ANION GAP 10.1 (8-16); CARBON DIOXIDE 29.9 mmol/L (21-32)
[2021-09-11 08:19] LABS: CREATININE 6.7 mg/dL (0.6-1.3)
[2021-09-11] MEDS: PANTOPRAZOLE 40 MG TABEC PO SCH (08:55)
[2021-09-11] MEDS: amLODIPine 5 MG TAB PO PRN (08:57)
[2021-09-11] MEDS: SEVELAMER CARBONATE 800 MG TAB PO SCH (08:57)
[2021-09-11] MEDS: PARoxetine 10 MG TAB PO SCH (08:57)
[2021-09-11] MEDS: VIT-B COMP/VIT-C/FOLIC ACID 1 TAB PO SCH (09:00)
[2021-09-11] MEDS: ASPIRIN 81 MG TAB.CHEW PO SCH (09:00)
[2021-09-11] MEDS: levETIRAcetam 500 MG TAB PO SCH ×2 (09:00→12:26)
[2021-09-11] MEDS: GABAPENTIN 300 MG CAP PO SCH (09:01)
[2021-09-11] MEDS: AMANTADINE 100 MG CAP PO SCH (09:07)
--- NOTE | 2021-09-11 09:58 | NUR ---
PT'S 0800 BP 171/93, CREATININE 6.7, NORVASC 10MG GIVEN @ 0857. DR. BHAKTA ORDERED DIALYSIS TODAY TODAY. WILL CONTINUE MONITOR
[2021-09-11] MEDS ORDERED: CEPH-588 PO (11:02)
--- NOTE | 2021-09-11 11:05 | NUR ---
WOUND CARE EVALUATION NOTE: SKIN ASSESSMENT DONE. PT. ADMITTED WITH PRESSURE INJURY TO SACRALCOCCYX AND SHARIF SCALE AT HIGH RISK, PT. IS AAX4 , VERBALIZES NEEDS AND UNDERSTANDING OF WOUND CARE PLAN AND INTERVENTIONS FOR PRESSURE INJURY MANAGEMENT. SKIN INTACT. BOWEL AND BLADDER INCONTINENT. MULTIPLE DRY SCABS AND OLD HEALED SCARS TISSUE TO BILATERAL LOWER LEGS. POC DISCUSSED WITH PRIMARY RN. INTEGUMENTARY: -PRESSURE INJURY STAGE 4 TO SACRAL COCCYX [id number] UNDERMINING FROM 9 OCLOCK TO 12 OCLOCK 3 CM DEEP, WOUND BED 80 % GRANULATION TISSUE WITH 20 % THIN LOOSE YELLOW SLOUGH TISSUE, MODERATE AMOUNT SEROUS DRAINAGE, NO ODOR, CAROLYN- WOUND SKIN BLANCHABLE REDNESS MOIST AND INTACT. RECOMMENDATIONS -CLEANSE SACRAL COCCYX WITH WOUND CARE SOLUTION, PACK WOUND WITH ALGINATE DRESSING SHEET AND COVER WITH ISLAND DRESSING SECURED WITH TAPE QD AND PRN IF SOILING -POSITIONING: TURN AND REPOSITION PATIENT Q 2H OR SOONER USE PILLOWS TO KEEP BONY PROMINENCES FROM DIRECT CONTACT WITH SURFACES USE REPOSITIONING WEDGES TO PROVIDE 30-DEGREE ANGLE FOR SIDE LYING POSITIONS OFFLOADING OR FOAM DRESSING TO ALL TUBING TO PREVENT MEDICAL DEVICES RELATED PRESSURE INJURY -RE-EVALUATING AND MANAGING INCONTINENCE MONITOR SKIN CONDITION DURING POSITION CHANGE DO NOT MASSAGE REDNESS, BONY PROMINENCES, DO NOT USE DONUT-TYPE DEVICES FREQUENT CAROLYN-CARE AND PROVIDE BARRIER CREAMS PRN IF SOILING MOISTURE CONTROL BY OFFER BED BENAVIDEZ/URINAL /ABSORBENT PAD TO WICK AND HOLD MOISTURE KEEP SKIN DRY AND PROTECT FROM FRICTION -MANAGE FRICTION/SHEAR/MOBILITY KEEP HOB AT THE LOWEST LEVEL OF ELEVATION NO MORE THAN 30 DEGREE UNLESS OTHERWISE CONTRAINDICATED USE LIFT SHEET OR TRANSFER DEVICE TO MOVE PATIENT AND PREVENT LATERAL SHEER. PROTECT HEELS, ELBOWS BONY PROMINENCES WITH SKIN BERRIES OR FOAM DRESSING IF EXPOSED TO FRICTION OFFLOAD BILATERAL HEELS BY PLACING PILLOWS UNDER CALVES AT ALL TIMES, UNLESS OTHERWISE CONTRAINDICATED -PRESSURE REDISTRIBUTION SURFACE THERAPY -NUTRITION: PLEASE FOLLOW RD RECOMMENDATIONS AND OFFER NUTRITION SUPPLEMENTS IF ORDERED. PLEASE CONTACT WOUND CARE NURSE FOR ANY QUESTION AND CHANGE OF WOUND CONDITION.
--- NOTE | 2021-09-11 11:15 | NUR ---
PATIENT HAS BEEN SCREENED AND CATEGORIZED HIGH NUTRITION RISK. PATIENT WILL BE SEEN WITHIN 1-2 DAYS OF ADMISSION. 09/11/21 RECEIVED CONSULT AND REFERRAL FOR WOUNDS AND PRESSURE INJURY CHRISTIAN HAMMOND RD
--- NOTE | 2021-09-11 11:27 | NUR ---
DC PLANNING: PATIENT HAS AN ORDER TO RETURN TO [facility] AFTER DIALYSIS. FAXED ALL PAPERWORK TO [facility]. CM TO FOLLOW Addendum: 09/11/21 at 1621 by Madeline Thompson RN DC PLANNING: PT IS RETURNING TO [facility]. CAN GO TO ROOM 24B #TO GIVE REPORT [phone]. ARRANGED TRANSPORT WITH Done. MEDICAL TRANSPORT SPOKE WITH [facility] REF # [id number] FINISHED GOODS INSPECTOR TIME 7 PM. NOTIFIED DREW HARDY. CM TO FOLLOW
[2021-09-11 12:00] VITALS: BP 159/81
[2021-09-11] MEDS ORDERED: SEVELAMER CARBONATE 800 MG TAB PO SCH (12:00)
[2021-09-11] MEDS ORDERED: ALGINATE ROPE MC SCH (13:00)
--- NOTE | 2021-09-11 13:50 | NUR ---
PT HAS ORDER TO HAVE DIALYSIS TODAY PER PCP ORDER. DIALYSIS NURSE CALLED. PT STABLE, ALL SCHEDULED MEDS GIVEN AT THIS TIME Addendum: 09/11/21 at 1356 by Malissa Desai RN EXCEPT 1300 DOSE KEPPRA WHICH PT REFUSED MEDS
[2021-09-11 16:00] VITALS: BP 164/79
--- NOTE | 2021-09-11 19:22 | NUR ---
AROUND 1835 NURSE D/C PT TO [facility] THROUGH GURNEY TRANSPORT THAT PROVIDE BY MEDICAL TRANSPORTATION W/ STABLE CONDITION. PT ADMIT TO THE FACILITY D/T MISSING DIALYSIS APPOINTMENT, AND HE FINISH DIALYSIS AROUND 1745 W/ 2.6 LITER REMOVED. NURSE CALLED [facility] PRE DISCHARGE PT. ALL PT BELONG AND D/C INSTRUCTION RELEASE TO PT. IV REMOVED.
[2021-09-12] MEDS ORDERED: AMANTADINE 100 MG CAP PO SCH (09:00)
[2021-09-12] MEDS ORDERED: EPOETIN ALFA-EPBX 10,000 UNITS/ML VIAL SUBQ SCH (09:00)
[2021-09-14] MEDS ORDERED: AMANTADINE 100 MG CAP PO SCH (09:00)
== END 2021-09-11 18:45 | DRG 291 ==
LOC: MED 13:40 → MTU 15:41
PROVIDERS: ADMIT Family Medicine; ATTEND Family Medicine
PROC: 5A1D70Z Performance of Urinary Filtration, Intermittent, Less than 6 Hours Per Day (ICD-10-PCS; principal; 2021-09-09)
PROC: 5A1D70Z Performance of Urinary Filtration, Intermittent, Less than 6 Hours Per Day (ICD-10-PCS; 2021-09-11)
DX: I13.2 Hypertensive heart and chronic kidney disease with heart failure and with stage 5 chronic kidney disease, or end stage renal disease (principal); L89.154 Pressure ulcer of sacral region, stage 4; N18.6 End stage renal disease; I50.43 Acute on chronic combined systolic (congestive) and diastolic (congestive) heart failure; E43 Unspecified severe protein-calorie malnutrition; N17.0 Acute kidney failure with tubular necrosis; D63.8 Anemia in other chronic diseases classified elsewhere; E11.22 Type 2 diabetes mellitus with diabetic chronic kidney disease; Z20.822 Contact with and (suspected) exposure to COVID-19; E78.5 Hyperlipidemia, unspecified; F32.A Depression, unspecified; Z99.2 Dependence on renal dialysis; Z68.25 Body mass index [BMI] 25.0-25.9, adult; Z88.8 Allergy status to other drugs, medicaments and biological substances; Z79.82 Long term (current) use of aspirin; Z79.899 Other long term (current) drug therapy; Z90.49 Acquired absence of other specified parts of digestive tract; Z89.421 Acquired absence of other right toe(s)
CPT/HCPCS: 36415; 71045; 80048; 80053; 82150; 82948; 83036; 83690; 83735; 83880; 84100; 84436; 84439; 84443; 84479; 84484; 85025; 85610; 85730; 87081; 93005; 99285; J0696; J1815; J7060; Q0092

== ENCOUNTER 2022-01-15 10:03 | Inpatient (IN) | payer OTHER, MEDICAID ==
[~2022-01-15] VITALS: Ht 170.2 cm; Wt 43.7 kg
[~2022-01-15 10:03] MED LIST changes: -BUS5 PO; +CARV12.5 PO; +CEPH-588 PO; +CYCL-711 PO; +DIVA125E1 PO; +FERR325E14 PO; +GABA300C PO; +IV Zosyn IV; +LISI-487 PO; +METO-485 PO; +NITR0.4S23 SL; +SLIDE SUBQ; +SYN.05 PO; +TAMS0.4C96 PO; -TUBE5SOL28 TD; +VITA1TAB44 PO; -ZINC50TA76 PO
[2022-01-15 10:06] VITALS: BP 160/68
[2022-01-15] MEDS ORDERED: NACL 0.9% 500 ML IV SCH (10:40)
[2022-01-15] MEDS ORDERED: DEXTROSE 50% 50 ML SYR IVP ONE (10:40)
[2022-01-15 11:44] LABS: HEMATOCRIT 35.4 % (36-52); MEAN CORPUSCULAR HEMOGLOBIN 26 pg (27-31); MEAN CORPUSCULAR HGB CONC 31 g/dL (33-37); MEAN CORPUSCULAR VOLUME 82.6 fL (80-94); RED BLOOD CELL COUNT(AUTO) 4.29 MIL/uL (4.20-6.10); RED CELL DISTRIBUTION WIDTH 21.2 % (11.6-13.7); WHITE BLOOD COUNT (AUTO) 7.2 K/uL (4.8-10.8)
[2022-01-15 12:01] LABS: PLATELET COUNT (AUTO) 109 K/uL (140-450)
[2022-01-15 12:02] LABS: EOSINOPHILS % (MANUAL) 12 % (0-4); LYMPHOCYTES % (MANUAL) 27 % (20-46); MONOCYTES % (MANUAL) 7 % (5-12)
[2022-01-15 12:03] LABS: PROTHROMBIN TIME 12.7 secs (10.8-13.4)
[2022-01-15 12:05] LABS: ANION GAP 12.2 (8-16); ASPARTATE AMINOTRANSFERASE 9 U/L (15-37); CARBON DIOXIDE 30.5 mmol/L (21-32); CHLORIDE 102 mmol/L (98-107); GFR ARICAN-AMERICAN 11 mL/min (>90); GLUCOSE 64 mg/dL (74-106); POTASSIUM 4.7 mmol/L (3.5-5.1); SODIUM SERUM 140 mmol/L (136-145); THYROID STIMULATING HORMONE 7.02 uIU/mL (0.34-3.74); TOTAL BILIRUBIN 0.6 mg/dL (0.0-1.0); UREA NITROGEN, BLOOD 32 mg/dL (7-18)
[2022-01-15 12:08] LABS: CREATININE 6.9 mg/dL (0.6-1.3)
[2022-01-15] MEDS ORDERED: BLOOD GLUCOSE MONITORING 1 DEV DEV FS SCH (14:20)
[2022-01-15] MEDS: DEXT 5% /NACL 0.9% 1,000 ML IV SCH (14:39)
[2022-01-15 16:00] VITALS: BP 162/78
[2022-01-15] MEDS ORDERED: guaiFENesin DM 200/20 MG-10 ML 10 ML UDC PO PRN (17:05)
[2022-01-15] MEDS ORDERED: DOCUSATE SODIUM 100 MG GELCAP PO PRN (17:05)
[2022-01-15] MEDS ORDERED: POTASSIUM CHLORIDE 10 MEQ TABER PO PRN (17:05)
[2022-01-15] MEDS ORDERED: ACETAMINOPHEN 325 MG TAB PO PRN (17:05)
[2022-01-15] MEDS ORDERED: ZOLPIDEM 5 MG TAB PO PRN (17:05)
[2022-01-15] MEDS ORDERED: ONDANSETRON 4 MG/2 ML VIAL IM/IVP PRN (17:05)
[2022-01-15 17:32] LABS: FREE T4 (FREE THYROXINE) 1.4 ng/dL (0.76-1.46); MAGNESIUM 2.4 mg/dL (1.8-2.4); THYROID STIMULATING HORMONE 8.14 uIU/mL (0.34-3.74)
[2022-01-15 17:46] LABS: CHOL/HDL RATIO 1.4 (1-4.5)
[2022-01-15] MEDS: HYDROcodone/APAP 7.5/325 MG 1 TAB PO PRN (18:53)
[2022-01-15] MEDS ORDERED: FERROUS SULFATE 325 MG TABEC PO SCH (21:00)
[2022-01-15] MEDS: DIVALPROEX SPRINKLES 125 MG CAPDR PO SCH (21:52)
[2022-01-15] MEDS: ATORVASTATIN 20 MG TAB PO SCH (21:53)
[2022-01-15] MEDS: lisinopriL 20 MG TAB PO SCH (21:53)
[2022-01-15] MEDS: TAMSULOSIN 0.4 MG CAP PO SCH (21:54)
[2022-01-16 04:00] VITALS: BP 126/67
[2022-01-16] MEDS: DIVALPROEX SPRINKLES 125 MG CAPDR PO SCH ×3 (04:48→20:52)
[2022-01-16 05:52] LABS: BASOPHILS # (AUTO) 0.2 K/uL (0.00-0.22); BASOPHILS % (AUTO) 2.6 % (0.0-2.0); EOSINOPHILS # (AUTO) 0.8 K/uL (0-0.4); HEMATOCRIT 32.9 % (36-52); HEMOGLOBIN 10.3 g/dL (12.0-18.0); LYMPHOCYTES # (AUTO) 1.2 K/uL (2.0-11.5); LYMPHOCYTES % (AUTO) 18.3 % (20.5-51.1); MEAN CORPUSCULAR HEMOGLOBIN 26 pg (27-31); MEAN CORPUSCULAR HGB CONC 31 g/dL (33-37); MEAN CORPUSCULAR VOLUME 82.5 fL (80-94); MONOCYTES # (AUTO) 0.6 K/uL (0.8-1.0); MONOCYTES % (AUTO) 9.4 % (1.7-9.3); NEUTROPHILS # (AUTO) 3.8 K/uL (1.8-7.7); NEUTROPHILS % (AUTO) 57.7 % (42.2-75.2); PLATELET COUNT (AUTO) 83 K/uL (140-450); RED BLOOD CELL COUNT(AUTO) 3.99 MIL/uL (4.20-6.10); RED CELL DISTRIBUTION WIDTH 21.8 % (11.6-13.7); WHITE BLOOD COUNT (AUTO) 6.6 K/uL (4.8-10.8)
[2022-01-16 06:09] LABS: ANION GAP 12.5 (8-16); POTASSIUM 4.5 mmol/L (3.5-5.1)
[2022-01-16] MEDS: LEVOTHYROXINE 0.05 MG TAB PO SCH (06:19)
[2022-01-16 08:00] VITALS: BP 148/83
[2022-01-16] MEDS: levETIRAcetam 500 MG TAB PO SCH ×3 (08:53→16:27)
[2022-01-16] MEDS: lisinopriL 20 MG TAB PO SCH (08:53)
[2022-01-16] MEDS: PANTOPRAZOLE 40 MG TABEC PO SCH (08:53)
[2022-01-16] MEDS: GABAPENTIN 300 MG CAP PO SCH (08:53)
[2022-01-16] MEDS: PARoxetine 10 MG TAB PO SCH (08:54)
[2022-01-16] MEDS: amLODIPine 5 MG TAB PO SCH (08:54)
[2022-01-16] MEDS: ASPIRIN 81 MG TAB.CHEW PO SCH (08:54)
[2022-01-16] MEDS: DEXT 5% /NACL 0.9% 1,000 ML IV SCH (10:14)
[2022-01-16] MEDS: HYDROcodone/APAP 7.5/325 MG 1 TAB PO PRN (10:38)
[2022-01-16 16:00] VITALS: BP 125/77
[2022-01-16 20:10] VITALS: BP 179/62
[2022-01-16] MEDS: ATORVASTATIN 20 MG TAB PO SCH (20:52)
[2022-01-16] MEDS: TAMSULOSIN 0.4 MG CAP PO SCH (20:52)
[2022-01-17 04:00] VITALS: BP 138/65
[2022-01-17 05:24] LABS: BASOPHILS # (AUTO) 0.2 K/uL (0.00-0.22); BASOPHILS % (AUTO) 2.2 % (0.0-2.0); HEMATOCRIT 33.2 % (36-52); HEMOGLOBIN 10.4 g/dL (12.0-18.0); LYMPHOCYTES # (AUTO) 1.5 K/uL (2.0-11.5); LYMPHOCYTES % (AUTO) 20.2 % (20.5-51.1); MEAN CORPUSCULAR HEMOGLOBIN 26 pg (27-31); MEAN CORPUSCULAR HGB CONC 31 g/dL (33-37); MEAN CORPUSCULAR VOLUME 82.5 fL (80-94); MONOCYTES # (AUTO) 0.8 K/uL (0.8-1.0); MONOCYTES % (AUTO) 10.1 % (1.7-9.3); NEUTROPHILS # (AUTO) 4.1 K/uL (1.8-7.7); NEUTROPHILS % (AUTO) 54.5 % (42.2-75.2); PLATELET COUNT (AUTO) 74 K/uL (140-450); RED BLOOD CELL COUNT(AUTO) 4.02 MIL/uL (4.20-6.10); RED CELL DISTRIBUTION WIDTH 22.1 % (11.6-13.7); WHITE BLOOD COUNT (AUTO) 7.5 K/uL (4.8-10.8)
[2022-01-17] MEDS: DIVALPROEX SPRINKLES 125 MG CAPDR PO SCH ×3 (06:01→21:29)
[2022-01-17] MEDS: LEVOTHYROXINE 0.05 MG TAB PO SCH (06:02)
[2022-01-17] MEDS: HYDROcodone/APAP 7.5/325 MG 1 TAB PO PRN (06:09)
[2022-01-17 06:15] LABS: ANION GAP 13.4 (8-16); CARBON DIOXIDE 28.6 mmol/L (21-32); CREATININE 6.6 mg/dL (0.6-1.3)
[2022-01-17 08:00] VITALS: BP 139/64
[2022-01-17] MEDS: amLODIPine 5 MG TAB PO SCH (09:00)
[2022-01-17] MEDS: levETIRAcetam 500 MG TAB PO SCH ×4 (09:00→17:00)
[2022-01-17] MEDS: lisinopriL 20 MG TAB PO SCH (09:00)
[2022-01-17] MEDS: PANTOPRAZOLE 40 MG TABEC PO SCH (09:26)
[2022-01-17] MEDS: VIT-B COMP/VIT-C/FOLIC ACID 1 TAB PO SCH (09:27)
[2022-01-17] MEDS: GABAPENTIN 300 MG CAP PO SCH (09:27)
[2022-01-17] MEDS: PARoxetine 10 MG TAB PO SCH (09:27)
[2022-01-17] MEDS: ASPIRIN 81 MG TAB.CHEW PO SCH (09:28)
[2022-01-17] MEDS: DEXT 5% /NACL 0.9% 1,000 ML IV SCH ×2 (09:43→18:56)
[2022-01-17 16:00] VITALS: BP 133/62
[2022-01-17] MEDS: ATORVASTATIN 20 MG TAB PO SCH (21:29)
[2022-01-17] MEDS: TAMSULOSIN 0.4 MG CAP PO SCH (21:30)
[2022-01-18] VITALS: BP 142/62
[2022-01-18] MEDS: HYDROcodone/APAP 7.5/325 MG 1 TAB PO PRN ×2 (01:59→17:54)
[2022-01-18] MEDS: DIVALPROEX SPRINKLES 125 MG CAPDR PO SCH ×2 (05:50→12:50)
[2022-01-18] MEDS: LEVOTHYROXINE 0.05 MG TAB PO SCH (05:52)
[2022-01-18 06:04] LABS: ANION GAP 10.1 (8-16); CARBON DIOXIDE 31.5 mmol/L (21-32); POTASSIUM 4.6 mmol/L (3.5-5.1)
[2022-01-18 06:06] LABS: BASOPHILS # (AUTO) 0.2 K/uL (0.00-0.22); BASOPHILS % (AUTO) 2.6 % (0.0-2.0); EOSINOPHILS # (AUTO) 1.1 K/uL (0-0.4); EOSINOPHILS % (AUTO) 18.2 % (0.0-4.0); HEMATOCRIT 33.8 % (36-52); HEMOGLOBIN 10.7 g/dL (12.0-18.0); LYMPHOCYTES # (AUTO) 1.4 K/uL (2.0-11.5); LYMPHOCYTES % (AUTO) 23.5 % (20.5-51.1); MEAN CORPUSCULAR HEMOGLOBIN 26 pg (27-31); MEAN CORPUSCULAR HGB CONC 32 g/dL (33-37); MEAN CORPUSCULAR VOLUME 81.8 fL (80-94); MONOCYTES # (AUTO) 0.6 K/uL (0.8-1.0); MONOCYTES % (AUTO) 10.5 % (1.7-9.3); NEUTROPHILS # (AUTO) 2.7 K/uL (1.8-7.7); NEUTROPHILS % (AUTO) 45.2 % (42.2-75.2); PLATELET COUNT (AUTO) 61 K/uL (140-450); RED BLOOD CELL COUNT(AUTO) 4.14 MIL/uL (4.20-6.10); RED CELL DISTRIBUTION WIDTH 21.2 % (11.6-13.7); WHITE BLOOD COUNT (AUTO) 5.9 K/uL (4.8-10.8)
[2022-01-18 08:00] VITALS: BP 128/66
[2022-01-18 08:10] LABS: CREATININE 5.5 mg/dL (0.6-1.3)
[2022-01-18] MEDS: PANTOPRAZOLE 40 MG TABEC PO SCH (08:49)
[2022-01-18] MEDS: ASPIRIN 81 MG TAB.CHEW PO SCH (08:49)
[2022-01-18] MEDS: amLODIPine 5 MG TAB PO SCH (08:50)
[2022-01-18] MEDS: lisinopriL 20 MG TAB PO SCH (08:50)
[2022-01-18] MEDS: levETIRAcetam 500 MG TAB PO SCH ×3 (08:50→17:55)
[2022-01-18] MEDS: GABAPENTIN 300 MG CAP PO SCH (08:51)
[2022-01-18] MEDS: VIT-B COMP/VIT-C/FOLIC ACID 1 TAB PO SCH (08:51)
[2022-01-18] MEDS: PARoxetine 10 MG TAB PO SCH (08:51)
[2022-01-18 14:05] VITALS: BP 128/66
== END 2022-01-18 18:10 | DRG 291 ==
LOC: MED 10:03 → MTU 14:24
PROVIDERS: ADMIT Family Medicine; ATTEND Family Medicine
PROC: 5A1D70Z Performance of Urinary Filtration, Intermittent, Less than 6 Hours Per Day (ICD-10-PCS; principal; 2022-01-15)
PROC: 5A1D70Z Performance of Urinary Filtration, Intermittent, Less than 6 Hours Per Day (ICD-10-PCS; 2022-01-16)
PROC: 5A1D70Z Performance of Urinary Filtration, Intermittent, Less than 6 Hours Per Day (ICD-10-PCS; 2022-01-17)
PROC: 5A1D70Z Performance of Urinary Filtration, Intermittent, Less than 6 Hours Per Day (ICD-10-PCS; 2022-01-18)
DX: I13.2 Hypertensive heart and chronic kidney disease with heart failure and with stage 5 chronic kidney disease, or end stage renal disease (principal); I50.43 Acute on chronic combined systolic (congestive) and diastolic (congestive) heart failure; N18.6 End stage renal disease; N17.0 Acute kidney failure with tubular necrosis; G93.40 Encephalopathy, unspecified; E44.0 Moderate protein-calorie malnutrition; Z20.822 Contact with and (suspected) exposure to COVID-19; L89.159 Pressure ulcer of sacral region, unspecified stage; D64.9 Anemia, unspecified; E78.5 Hyperlipidemia, unspecified; E11.40 Type 2 diabetes mellitus with diabetic neuropathy, unspecified; E11.22 Type 2 diabetes mellitus with diabetic chronic kidney disease; K21.9 Gastro-esophageal reflux disease without esophagitis; F32.A Depression, unspecified; Z79.84 Long term (current) use of oral hypoglycemic drugs; Z79.899 Other long term (current) drug therapy; Z79.82 Long term (current) use of aspirin
CPT/HCPCS: 36415; 70450; 71045; 80048; 80053; 82140; 82150; 82948; 83036; 83605; 83690; 83735; 83880; 84100; 84436; 84439; 84443; 84479; 84484; 85025; 85610; 85730; 87040; 87081; 93005; 96374; 97112; 97116; 97163-GP; 97530; 99285; Q0092

== ENCOUNTER 2022-04-02 17:21 | Inpatient (IN) | payer OTHER, MEDICAID ==
[~2022-04-02] VITALS: Ht 167.6 cm; Wt 69.9 kg
[~2022-04-02 17:21] MED LIST changes: -ACET-8386 PO; -CEPH-588 PO; -IV Zosyn IV; -METO-485 PO; -NITR0.4S23 SL; -ONDA-188 PO; -PANT40EC PO
--- NOTE | 2022-04-02 17:54 | NUR ---
PT BIB ALS RUN FROM DIALYSIS C/O GENERALIZED WEAKNESS. PT ALERT ANSWERS QUESTIONS SLOWLY BUT FALLS BACK ASLEEO. BS 99.
[2022-04-02 17:55] VITALS: BP 157/68
[2022-04-02 17:55] LABS: BASOPHILS # (AUTO) 0.2 K/uL (0.00-0.22); EOSINOPHILS # (AUTO) 0.5 K/uL (0-0.4); EOSINOPHILS % (AUTO) 7.2 % (0.0-4.0); HEMATOCRIT 40.5 % (36-52); HEMOGLOBIN 12.9 g/dL (12.0-18.0); LYMPHOCYTES # (AUTO) 0.8 K/uL (2.0-11.5); LYMPHOCYTES % (AUTO) 11.2 % (20.5-51.1); MEAN CORPUSCULAR HEMOGLOBIN 26 pg (27-31); MEAN CORPUSCULAR HGB CONC 32 g/dL (33-37); MEAN CORPUSCULAR VOLUME 82.3 fL (80-94); MONOCYTES # (AUTO) 0.4 K/uL (0.8-1.0); MONOCYTES % (AUTO) 6.1 % (1.7-9.3); NEUTROPHILS # (AUTO) 5.4 K/uL (1.8-7.7); NEUTROPHILS % (AUTO) 72.5 % (42.2-75.2); PLATELET COUNT (AUTO) 126 K/uL (140-450); RED BLOOD CELL COUNT(AUTO) 4.92 MIL/uL (4.20-6.10); RED CELL DISTRIBUTION WIDTH 17.2 % (11.6-13.7); WHITE BLOOD COUNT (AUTO) 7.4 K/uL (4.8-10.8)
[2022-04-02 18:19] LABS: ACETAMINOPHEN 1.6 ug/ml (10-30); ALBUMIN 3.1 g/dL (3.4-5.0); ANION GAP 13.4 (8-16); ASPARTATE AMINOTRANSFERASE 15 U/L (15-37); CARBON DIOXIDE 32.5 mmol/L (21-32); CHLORIDE 99 mmol/L (98-107); GFR ARICAN-AMERICAN 20 mL/min (>90); GLUCOSE 90 mg/dL (74-106); POTASSIUM 3.9 mmol/L (3.5-5.1); SODIUM SERUM 141 mmol/L (136-145); TOTAL BILIRUBIN 0.9 mg/dL (0.0-1.0); UREA NITROGEN, BLOOD 15 mg/dL (7-18)
[2022-04-02 18:21] LABS: CREATININE 4.1 mg/dL (0.6-1.3)
[2022-04-02 18:22] LABS: SALICYLATE < 2.8 mg/dL (2.8-20.0)
--- NOTE | 2022-04-02 19:42 | NUR ---
COVID-19 swabs collected and sent to lab.
--- NOTE | 2022-04-02 19:55 | NUR ---
Flu swabs collected and sent to lab.
--- NOTE | 2022-04-02 19:56 | NUR ---
Patient had sacral pressure wound - when re-check wound on his body.
--- NOTE | 2022-04-02 20:00 | NUR ---
Took picture sacral area as protocol.
[2022-04-02 20:03] LABS: FREE T4 (FREE THYROXINE) 1.26 ng/dL (0.76-1.46); THYROID STIMULATING HORMONE 2.18 uIU/mL (0.34-3.74)
[2022-04-02] MEDS ORDERED: DIVA125E1 PO (20:18)
[2022-04-02] MEDS ORDERED: PAX10 PO (20:18)
[2022-04-02] MEDS ORDERED: POLY17PD65 PO (20:18)
[2022-04-02] MEDS ORDERED: TAMS0.4C97 PO (20:18)
[2022-04-02] MEDS ORDERED: VITA1TAB44 PO (20:18)
--- NOTE | 2022-04-02 20:18 | NUR ---
Med-rec reviewed.
[2022-04-02] MEDS ORDERED: POTASSIUM CHLORIDE 10 MEQ TABER PO PRN (20:20)
[2022-04-02] MEDS ORDERED: ACETAMINOPHEN 325 MG TAB PO PRN (20:20)
[2022-04-02] MEDS ORDERED: LORazepam 2 MG/ML VIAL IVP PRN (20:20)
[2022-04-02] MEDS ORDERED: ZOLPIDEM 10 MG TAB PO PRN (20:20)
[2022-04-02] MEDS ORDERED: MAG SULF 2000 MG/WATER PREMIX 50 ML IV PRN (20:20)
[2022-04-02] MEDS ORDERED: DOCUSATE SODIUM 100 MG GELCAP PO PRN (20:20)
[2022-04-02] MEDS ORDERED: ONDANSETRON 4 MG/2 ML VIAL IVP PRN (20:20)
[2022-04-02] MEDS ORDERED: MORPHINE SULFATE 2 MG/ML SYR IVP PRN (20:20)
[2022-04-02] MEDS ORDERED: INSULIN LISPRO SLIDING SCALE 100 UNITS/ML VIAL SUBQ PRN (20:25)
--- NOTE | 2022-04-02 21:00 | NUR ---
Patient will be admitted to care of Dr. Gottlieb. Admited to TELE. Will go to room 111A. Belongings list completed. Report to ANTONY Long.
[2022-04-02 21:17] VITALS: BP 150/85
--- NOTE | 2022-04-02 21:17 | NUR ---
RECEIVED PT FROM JUAN JOSE/ ANA MARIA , ALTHOUGH TOO SLEEPY , AROUSABLE , AND ANSWER ALL QUESTION CORRECTLY , NID - O2 SAT WNL , ON TELE MONITOR - SR , IV SITE INTACT AND PATENT , W/ L AV SHUNT . TRANSFER TO BED BY 3 PEOPLE MANUAL LIFT . ADMISSION ASSESSMENT - WILL BE DONE . PLAN OF CARE DISCUSSED AND VERBALIZES UNDERSTANDING BUT NEEDS RE INFORCEMENT DUE TO EASILY TO FALL BACK SLEEP - WILL CHECK BS , PUT PT . IN FALL PREVENTION PROTOCOL , PUT PT. ON S2 PREC. - WILL CONT. TO MONITOR . CALL LIGHT WITHIN REACH . Addendum: 04/03/22 at 0458 by Mercedes Fernandes RN W/ L AV SHUNT ON UPPER ARM - BRUIT
--- NOTE | 2022-04-02 23:11 | NUR ---
BS 56 - WILL MEDICATE.
[2022-04-02] MEDS: DEXTROSE 50% 50 ML SYR IVP PRN (23:12)
[2022-04-02] MEDS: BLOOD GLUCOSE MONITORING 1 DEV DEV FS SCH (23:20)
[2022-04-02] MEDS: DIVALPROEX SPRINKLES 125 MG CAPDR PO SCH (23:34)
[2022-04-02] MEDS: FERROUS SULFATE 325 MG TABEC PO SCH (23:34)
[2022-04-02] MEDS: TAMSULOSIN 0.4 MG CAP PO SCH (23:34)
[2022-04-02] MEDS: GABAPENTIN 300 MG CAP PO SCH (23:36)
[2022-04-02] MEDS: ATORVASTATIN 20 MG TAB PO SCH (23:36)
[2022-04-02] MEDS: lisinopriL 20 MG TAB PO SCH (23:36)
[2022-04-02] MEDS: carvediloL 12.5 MG TAB PO SCH (23:36)
--- NOTE | 2022-04-02 23:36 | NUR ---
FULLY AWAKE , MED GIVEN P.O - NO S/SX OF ASPIRATION NOTED .
--- NOTE | 2022-04-02 23:51 | NUR ---
REFERRED DR. HWANG - BP 150/85 , HR 58 - 60 - PER DR. HWANG HOLD ZESTRIL AND COREG FOR NOW .
[2022-04-03] VITALS: BP 150/86
--- NOTE | 2022-04-03 01:07 | NUR ---
BP RE CHECK - 144 , WILL CONT. TO MONITOR . Addendum: 04/03/22 at 0108 by Mercedes Fernandes RN THE WORD BP IN THE ABOVE NURSE'S NOTE IS AN ERROR ENTRY , INSTEAD OF BS IN BLOOD SUGAR
[2022-04-03 04:00] VITALS: BP 153/82
--- NOTE | 2022-04-03 04:00 | NUR ---
ROUNDS , ON TELE MONITOR , NO S/SX OF ACUTE DISTRESS NOTED , CALL LIGHT WITHIN REACH .
--- NOTE | 2022-04-03 06:09 | NUR ---
BS CHECK 49 - INFORM CHARGE NURSE - WILL MEDICATE D 50/ 50 , PT IS SLEEPY , EASILY AROUSABLE , AAOX4 , WILL FEED PT . - WILL ENDORSE .
[2022-04-03] MEDS: DEXTROSE 50% 50 ML SYR IVP PRN (06:10)
[2022-04-03] MEDS: BLOOD GLUCOSE MONITORING 1 DEV DEV FS SCH ×4 (06:10→21:57)
[2022-04-03] MEDS: GABAPENTIN 300 MG CAP PO SCH (06:56)
[2022-04-03] MEDS: DIVALPROEX SPRINKLES 125 MG CAPDR PO SCH ×3 (06:56→21:57)
[2022-04-03] MEDS: LEVOTHYROXINE 0.025 MG TAB PO SCH (06:56)
--- NOTE | 2022-04-03 06:56 | NUR ---
AWAKE , AAOX4 , SCHED. MEDS P.O GIVEN - NO S/SX OF ASPIRATION NOTED . WILL CONT. TO MONITOR , CALL LIGHT WITHIN REACH . - WILL RE CHECK TO BS - WILL ENDORSE .
--- NOTE | 2022-04-03 07:05 | NUR ---
BS RE CHECK - 152 - WILL ENDORSE .
[2022-04-03 07:21] LABS: BASOPHILS # (AUTO) 0.2 K/uL (0.00-0.22); BASOPHILS % (AUTO) 2.7 % (0.0-2.0); EOSINOPHILS # (AUTO) 0.4 K/uL (0-0.4); EOSINOPHILS % (AUTO) 7.2 % (0.0-4.0); HEMATOCRIT 38.2 % (36-52); LYMPHOCYTES % (AUTO) 16.7 % (20.5-51.1); MEAN CORPUSCULAR HEMOGLOBIN 26 pg (27-31); MEAN CORPUSCULAR HGB CONC 31 g/dL (33-37); MEAN CORPUSCULAR VOLUME 82.9 fL (80-94); MONOCYTES # (AUTO) 0.5 K/uL (0.8-1.0); MONOCYTES % (AUTO) 8.5 % (1.7-9.3); NEUTROPHILS # (AUTO) 3.9 K/uL (1.8-7.7); NEUTROPHILS % (AUTO) 64.9 % (42.2-75.2); PLATELET COUNT (AUTO) 117 K/uL (140-450); RED BLOOD CELL COUNT(AUTO) 4.61 MIL/uL (4.20-6.10); RED CELL DISTRIBUTION WIDTH 17.7 % (11.6-13.7)
[2022-04-03 07:29] LABS: CARBON DIOXIDE 33.4 mmol/L (21-32); POTASSIUM 4.4 mmol/L (3.5-5.1)
--- NOTE | 2022-04-03 07:40 | NUR ---
ENDORSED PT FOR CONT. OF CARE , ON TELE MONITOR , AWAKE .
[2022-04-03 08:00] VITALS: BP 145/68
[2022-04-03 09:21] LABS: CREATININE 5.2 mg/dL (0.6-1.3)
--- NOTE | 2022-04-03 09:51 | NUR ---
PATIENT HAS BEEN SCREENED AND CATEGORIZED HIGH NUTRITION RISK. PATIENT WILL BE SEEN WITHIN 1-2 DAYS OF ADMISSION. 04/03/2210/26/22 RECEIVED [facility] CONSULT AND REFERRAL FOR WOUNDS [address]
[2022-04-03] MEDS: ASPIRIN 81 MG TAB.CHEW PO SCH (09:53)
[2022-04-03] MEDS: levETIRAcetam 500 MG TAB PO SCH ×3 (09:54→17:18)
[2022-04-03] MEDS: FERROUS SULFATE 325 MG TABEC PO SCH ×2 (09:54→21:57)
[2022-04-03] MEDS: carvediloL 12.5 MG TAB PO SCH ×2 (09:54→21:00)
[2022-04-03] MEDS: POLYETHYLENE GLYCOL 17 GM/PKT PO SCH (09:55)
[2022-04-03] MEDS: PARoxetine 10 MG TAB PO SCH (09:55)
[2022-04-03] MEDS: VIT-B COMP/VIT-C/FOLIC ACID 1 TAB PO SCH (09:55)
[2022-04-03] MEDS: lisinopriL 20 MG TAB PO SCH ×2 (09:55→21:58)
[2022-04-03 12:00] VITALS: BP 141/54
--- NOTE | 2022-04-03 12:00 | NUR ---
DISCHARGE PLANNING PATIENT IS A 56-YEAR-OLD MALE ADMITTED AT [facility]/ED ON 04/02/2022. DUE TO GENERAL WEAKNESS DURING HIS REGULAR DIALYSIS TIME. SW MEET WITH PATIENT AT BED SIDE TO DISCUSS AND GATHER PATIENTS COLLATERAL INFORMATION. PER PATIENT HE HAS HOSPITALIZED DUE TO NOT FEELING WELL AFTER HE HAD HIS DIALYSIS AND IS PLACED IN SNF [facility] FOR ABOUT 2 YEARS MAYBE LONGER. PER PATIENT HE WANTS TO GO BACK TO HIS SNF. PATIENT STATED THAT HE HAS GOOD FAMILY SUPPORT FROM HIS DAUGHTER FARHAN BERKOWITZ AND HIS GIRLFRIEND SABINE HER WHO LIVES IN [facility] ABOUT 2-[address] AW[address] FROM [facility]. PER PATIENT HIS DAUGHTER FARHAN BERKOWITZ IS HIS EMERGENCY CONTATC AND MEDICAL DESISION MAKER. PATIENT STATED THAT HE DO NOT HAVE A.D. BUT HAS ALREADY COMPLETED AND IS IN HIS CHART A POLTS ALREADY IN PLACE. PATIENT DECLINED INF. FORMS PROVIDED BY THESE MASTER OF CEREMONIES. PATIENT REPORTED THAT HE HAS HIS PCP MD. ROLY PORTILLO WHO FOLLOWS HIM UP REGULARLY FROM THE [facility]. PATIENT STATED THAT HE GETS GOOD CARE IN SNF AND HAS NO ISSUES WITH MEDICATIONS AND WITH EQUIPMENT, REPORTED HAVING A WHEELCHAIR HIS DME. PATIENT REPORTED THAT HE WOULD LIKE TO RETURN BACK TO [facility] SN[facility] WHEN HE IS READY AND STABLE TO DISCHARGE FROM [facility]. SW CALL [facility] AT TO DISCUSS PATIENT'S STATUS. SW SPOKE WITH ISAIAH WHO REPORTED THAT PATIENT HAS BEEN IN SNF FOR ABOUT 3 YEARS AND CONFIRMED THAT PATIENT ILL BE RETURNING TO SNF UNDER INTERMEDIATE BED HOLD. PER ISAIAH SNF NEEDS UPDATED CLINICALS FROM [facility] ABOUT PATIENT WHEN HE IS CLOSE TO DISCHARGE AND RETURN TO SNF. SW AGREED TO PROVIDE INFORMATION CLOSE TO DISCHARGE. SW CONTACTED PATIENT'S DAUGHTER FARHAN BERKOWITZ AT TO GIVE HER UPDATED INFORMATION ABOUT PATIENT'S STATUS, SW DISCUSS ADMISSION AND REASONS FOR ADMISSION AT [facility],DISCUSS CARE AND DISCHARGE PLAN TO RETURN TO [facility]. PER DAUGHTER AGREED AND THANKED SW FOR INFORMATION AND UPDATE ON PATIENT'S STATUS. SW/CM WILL FOLLOW UP WITH PATIENT NEEDED.
[2022-04-03 16:00] VITALS: BP 137/50
--- NOTE | 2022-04-03 19:30 | NUR ---
RECEIVED REPORT FROM DAY SHIFT NURSE ENRIQUE FOR CONTINUITY OF CARE. PATIENT IS A&O X4. PATIENT IS ON ROOM AIR, BREATHING IS NORMAL WITH SYMMETRICAL RISE AND FALL OF CHEST. IV IS 22G RAC, NO FLUIDS RUNNING AT THIS TIME (SALINE LOCKED). PATIENT IS AWAKE LYING SEMI-FOWLERS IN BED; PLAYING A GAME ON HIS TABLET. BED IS IN LOWEST POSITION WHEELS LOCKED AND CALL LIGHT IN PLACE. WILL CONTINUE TO OBSERVE PATIENT.
[2022-04-03 20:00] VITALS: BP 154/73
[2022-04-03] MEDS ORDERED: GABAPENTIN 300 MG CAP PO SCH (21:00)
[2022-04-03] MEDS: TAMSULOSIN 0.4 MG CAP PO SCH (21:57)
[2022-04-03] MEDS: ATORVASTATIN 20 MG TAB PO SCH (21:57)
--- NOTE | 2022-04-03 22:00 | NUR ---
ADMINISTERED 2100 MEDICATIONS. PATIENT WAS ABLE TO SWALLOW MEDICATIONS WITHOUT ANY ISSUES. REASSESSED PATIENT'S VITALS BEFORE ADMINISTERING MEDICATION, HR WAS 58. COREG (CARVEDILOL) WAS HELD DUE TO PATIENT'S HR BEING < 60. BS WAS OBTAINED; BS WAS 103, NO COVERAGE WAS NEEDED. PATIENT WAS AWAKE LYING IN BED PLAYING ON HIS ELECTRONIC TABLET. BREATHING WAS NORMAL WITH SYMMETRICAL RISE AND FALL OF CHEST. WILL CONTINUE TO OBSERVE PATIENT.
[2022-04-04] VITALS: BP 161/77
--- NOTE | 2022-04-04 00:30 | NUR ---
LOOKED IN ON PATIENT. PATIENT WAS AWAKE LYING SUPINE IN BED WATCHING VIDEOS ON HIS PHONE. ASKED PATIENT IF HE NEEDED ANYTHING, PATIENT STATED NO. ENCOURAGED PATIENT TO TRY AND GET SOME SLEEP. BREATHING WAS NORMAL WITH SYMMETRICAL RISE AND FALL OF CHEST. WILL CONTINUE TO OBSERVE PATIENT.
--- NOTE | 2022-04-04 03:00 | NUR ---
LOOKED IN ON PATIENT. PATIENT WAS SLEEPING, LYING SUPINE COMPLETELY COVERED UP. NO FLUIDS ARE RUNNING AT THIS TIME. BED IS IN LOWEST POSITION, WHEELS LOCKED, CALL LIGHT IN PLACE. WILL CONTINUE TO OBSERVE PATIENT.
[2022-04-04 04:00] VITALS: BP 151/93
[2022-04-04] MEDS: LEVOTHYROXINE 0.025 MG TAB PO SCH (05:55)
[2022-04-04] MEDS: DIVALPROEX SPRINKLES 125 MG CAPDR PO SCH ×2 (05:55→13:00)
--- NOTE | 2022-04-04 06:00 | NUR ---
ADMINISTERED 0500 MEDICATIONS TO PATIENT. PATIENT WAS ABLE TO SWALLOW WITHOUT DIFFICULTY. OBTAINED BS, BS WAS 68; GAVE PATIENT A CUP OF ORANGE JUICE AND ENCOURAGED PATIENT TO DRINK IT. PATIENT TOOK A SIP AND SAID HE DIDN'T WANT ANYMORE. EXPRESSED IMPORTANCE OF DRINKING IT TO HELP BRING BS UP. PATIENT SAID HE'LL DRINK A LITTLE BIT AT A TIME. ASSESSED PATIENT'S WOUND. DRESSING WAS SOILED. REMOVED FOAM DRESSING OVER SACRAL WOUND; GREEN DRAINAGE WAS PRESENT. WOUND WAS CLEANED WITH NS FLUSH AND DRIED WITH 4X4 GAUZE. NEW FOAM DRESSING WAS APPLIED OVER WOUND. PATIENT TOLERATED DRESSING CHANGE WELL; NO PAIN FROM SITE. PATIENT WAS SLEEPING UPON ENTERING THE ROOM. PATIENT LAID ON RIGHT SIDE TO GO BACK TO SLEEP UPON COMPLETION OF DRESSING CHANGE. BREATHING WAS NORMAL WITH SYMMETRICAL RISE AND FALL OF CHEST. WILL CONTINUE TO OBSERVE PATIENT.
[2022-04-04] MEDS: BLOOD GLUCOSE MONITORING 1 DEV DEV FS SCH ×2 (06:06→12:10)
--- NOTE | 2022-04-04 07:30 | NUR ---
ENDORSED TO DAY SHIFT ADZE FOR CONTINUITY OF CARE. PATIENT IS STABLE.
[2022-04-04 08:00] VITALS: BP 138/56
[2022-04-04] MEDS: carvediloL 12.5 MG TAB PO SCH (09:00)
[2022-04-04] MEDS: ASPIRIN 81 MG TAB.CHEW PO SCH (09:00)
[2022-04-04] MEDS: lisinopriL 20 MG TAB PO SCH (09:00)
[2022-04-04] MEDS: POLYETHYLENE GLYCOL 17 GM/PKT PO SCH (09:56)
[2022-04-04] MEDS: levETIRAcetam 500 MG TAB PO SCH ×2 (09:56→13:00)
[2022-04-04] MEDS: VIT-B COMP/VIT-C/FOLIC ACID 1 TAB PO SCH (09:57)
[2022-04-04] MEDS: FERROUS SULFATE 325 MG TABEC PO SCH (09:57)
[2022-04-04] MEDS: PARoxetine 10 MG TAB PO SCH (09:57)
[2022-04-04 10:16] LABS: BASOPHILS # (AUTO) 0.1 K/uL (0.00-0.22); BASOPHILS % (AUTO) 1.7 % (0.0-2.0); EOSINOPHILS # (AUTO) 0.4 K/uL (0-0.4); EOSINOPHILS % (AUTO) 6.8 % (0.0-4.0); HEMOGLOBIN 12.3 g/dL (12.0-18.0); LYMPHOCYTES # (AUTO) 1.1 K/uL (2.0-11.5); LYMPHOCYTES % (AUTO) 17.6 % (20.5-51.1); MEAN CORPUSCULAR HEMOGLOBIN 26 pg (27-31); MEAN CORPUSCULAR HGB CONC 32 g/dL (33-37); MEAN CORPUSCULAR VOLUME 83.6 fL (80-94); MONOCYTES # (AUTO) 0.4 K/uL (0.8-1.0); MONOCYTES % (AUTO) 6.7 % (1.7-9.3); NEUTROPHILS # (AUTO) 4.3 K/uL (1.8-7.7); NEUTROPHILS % (AUTO) 67.2 % (42.2-75.2); PLATELET COUNT (AUTO) 86 K/uL (140-450); RED BLOOD CELL COUNT(AUTO) 4.67 MIL/uL (4.20-6.10); RED CELL DISTRIBUTION WIDTH 17.7 % (11.6-13.7); WHITE BLOOD COUNT (AUTO) 6.4 K/uL (4.8-10.8)
[2022-04-04 10:29] LABS: ANION GAP 10.5 (8-16); POTASSIUM 4.5 mmol/L (3.5-5.1)
[2022-04-04] MEDS ORDERED: ALGINATE ROPE MC PRN (10:55)
[2022-04-04 10:57] LABS: CREATININE 4.2 mg/dL (0.6-1.3)
[2022-04-04 12:00] VITALS: BP 157/68
[2022-04-04] MEDS ORDERED: ALGINATE ROPE MC SCH (13:00)
--- NOTE | 2022-04-04 13:55 | NUR ---
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
--- NOTE | 2022-04-04 14:00 | NUR ---
DC PLANNING: PATIENT HAS A DC ORDER TO RETURN TO [facility]. FAXED ALL PAPERWORK TO [facility] CAN GO TO ROOM 5B # TO GIVE REPORT [phone] CARRY OUT CLERK AND SHELF STOCKER TIME 2 PM NOTIFIED CHARGE NURSE JOWIE. DELGADO TO FOLLOW
--- NOTE | 2022-04-04 14:25 | NUR ---
patient discharged to [facility]. report given to Pt. transported via EMR transportation. stable upon discharge.
== END 2022-04-04 14:25 | DRG 947 ==
LOC: MED 17:21 → MTU 20:17
PROVIDERS: ADMIT Family Medicine; ATTEND Family Medicine
PROC: 5A1D70Z Performance of Urinary Filtration, Intermittent, Less than 6 Hours Per Day (ICD-10-PCS; principal; 2022-04-04)
DX: R53.1 Weakness (principal); N18.6 End stage renal disease; I12.0 Hypertensive chronic kidney disease with stage 5 chronic kidney disease or end stage renal disease; G40.909 Epilepsy, unspecified, not intractable, without status epilepticus; Z20.822 Contact with and (suspected) exposure to COVID-19; E03.9 Hypothyroidism, unspecified; F03.90 Unspecified dementia, unspecified severity, without behavioral disturbance, psychotic disturbance, mood disturbance, and anxiety; E11.22 Type 2 diabetes mellitus with diabetic chronic kidney disease; E11.649 Type 2 diabetes mellitus with hypoglycemia without coma; Z88.8 Allergy status to other drugs, medicaments and biological substances; Z79.4 Long term (current) use of insulin; T42.6X5A Adverse effect of other antiepileptic and sedative-hypnotic drugs, initial encounter
CPT/HCPCS: 36415; 70450; 71045; 80048; 80053; 82140; 82550; 82948; 83735; 84439; 84443; 84484; 85025; 87081; 93005; 97110; 97116; 97163-GP; 97530; 99285; G0480; G0482; J1644; Q0092

== ENCOUNTER 2022-05-02 11:05 | Inpatient (IN) | payer OTHER, MEDICAID ==
[~2022-05-02] VITALS: Ht 167.6 cm; Wt 59.9 kg
[~2022-05-02 11:05] MED LIST changes: -MIRABULK PO; +POLY17PD65 PO; -SEVE800T6 PO; -TAMS0.4C96 PO; +TAMS0.4C97 PO
--- NOTE | 2022-05-02 11:10 | NUR ---
biba taken to bed 7
[2022-05-02 11:14] VITALS: BP 134/74
--- NOTE | 2022-05-02 11:46 | NUR ---
Dr. Sarabia evaluating patient at bedside.
--- NOTE | 2022-05-02 12:02 | NUR ---
Patient is being taken to imaging via [facility]
--- NOTE | 2022-05-02 12:28 | NUR ---
56/M EDMOND FROM [facility] WITH C/O NAUSEA, HEADACHE AND TWO EPISODES OF VOMITING THAT STARTED THIS MORNING S/P EATING BREAKFAST. PATIENT REPORTS HE GETS DIALYSIS MON, WED, SAT BUT MISSED TODAY D/T NOT FEELING WELL. UPON ARRIVAL PATIENT PLACED IN GOWN ON BEDSIDE NUCLEAR PHYSICIST.
--- NOTE | 2022-05-02 12:33 | NUR ---
Lab at bedside.
--- NOTE | 2022-05-02 12:39 | NUR ---
56 y/o male biba from [facility] for nausea and vomiting x today. Patient had 2 episodes of nausea 1 hour after his breakfast. Patient has an AV shunt to his left arm. Patient missed Dialysis appointment today due to vomiting. Patient has 8/10 throbbing head pain. Denies fevers or chills. Medical History: DM, ESRD, Dialysis Dependent, HTN, Epilepsy ALLERGY: METFORMIN
[2022-05-02 12:45] LABS: BASOPHILS # (AUTO) 0.1 K/uL (0.00-0.22); BASOPHILS % (AUTO) 1.1 % (0.0-2.0); EOSINOPHILS % (AUTO) 12.2 % (0.0-4.0); HEMATOCRIT 39.9 % (36-52); HEMOGLOBIN 12.4 g/dL (12.0-18.0); LYMPHOCYTES % (AUTO) 13.1 % (20.5-51.1); MEAN CORPUSCULAR HEMOGLOBIN 26 pg (27-31); MEAN CORPUSCULAR HGB CONC 31 g/dL (33-37); MEAN CORPUSCULAR VOLUME 84.5 fL (80-94); MONOCYTES # (AUTO) 0.6 K/uL (0.8-1.0); MONOCYTES % (AUTO) 7.2 % (1.7-9.3); NEUTROPHILS # (AUTO) 5.2 K/uL (1.8-7.7); NEUTROPHILS % (AUTO) 66.4 % (42.2-75.2); PLATELET COUNT (AUTO) 97 K/uL (140-450); RED BLOOD CELL COUNT(AUTO) 4.72 MIL/uL (4.20-6.10); WHITE BLOOD COUNT (AUTO) 7.8 K/uL (4.8-10.8)
[2022-05-02 12:55] LABS: PROTHROMBIN TIME 13.6 secs (10.8-13.4)
[2022-05-02 13:02] LABS: ANION GAP 13.3 (8-16); ASPARTATE AMINOTRANSFERASE 21 U/L (15-37); CARBON DIOXIDE 33.7 mmol/L (21-32); CHLORIDE 100 mmol/L (98-107); GFR ARICAN-AMERICAN 10 mL/min (>90); GLUCOSE 81 mg/dL (74-106); SODIUM SERUM 141 mmol/L (136-145); TOTAL BILIRUBIN 0.7 mg/dL (0.0-1.0); UREA NITROGEN, BLOOD 37 mg/dL (7-18)
[2022-05-02 13:06] LABS: CREATININE 7.1 mg/dL (0.6-1.3)
[2022-05-02] MEDS ORDERED: KETOROLAC 15 MG/ML VIAL IVP ONE (13:20)
[2022-05-02] MEDS ORDERED: DEXTROSE 50% 50 ML SYR IVP ONE (13:20)
[2022-05-02] MEDS ORDERED: SODIUM ZIRCONIUM CYCLOSILICATE 10 GM POWD.PACK PO ONE (13:20)
[2022-05-02] MEDS ORDERED: SODIUM BICARBONATE 8.4% PFS 50 MEQ/50 ML SYR IVP ONE (13:20)
[2022-05-02] MEDS ORDERED: INSULIN REGULAR, HUMAN 100 UNIT/ML VIAL IVP ONE (13:20)
--- NOTE | 2022-05-02 13:52 | NUR ---
Dr. Sarabia re-evaluating patient at bedside.
--- NOTE | 2022-05-02 14:01 | NUR ---
ROSIE swabs obtained, walked to lab.
--- NOTE | 2022-05-02 14:13 | NUR ---
Called and spoke to [facility], [facility] [place] phone number #: [phone].
--- NOTE | 2022-05-02 14:16 | NUR ---
Called and spoke to Kayla at [facility]. Patient's ice cream scooper is Dr. Davidson.
[2022-05-02] MEDS ORDERED: CARB1TAB35 PO (14:29)
[2022-05-02] MEDS ORDERED: SEVE800T6 PO (14:29)
[2022-05-02] MEDS ORDERED: DICL100G5 TP (14:29)
--- NOTE | 2022-05-02 14:30 | NUR ---
med rec complete
[2022-05-02] MEDS ORDERED: ACETAMINOPHEN 325 MG TAB PO PRN (15:05)
[2022-05-02] MEDS ORDERED: DOCUSATE SODIUM 100 MG GELCAP PO PRN (15:05)
[2022-05-02] MEDS ORDERED: guaiFENesin DM 200/20 MG-10 ML 10 ML UDC PO PRN (15:05)
[2022-05-02] MEDS ORDERED: POTASSIUM CHLORIDE 10 MEQ TABER PO PRN (15:05)
[2022-05-02] MEDS ORDERED: ZOLPIDEM 5 MG TAB PO PRN (15:05)
[2022-05-02] MEDS ORDERED: amLODIPine 5 MG TAB PO PRN (15:10)
[2022-05-02] MEDS ORDERED: CYCLOBENZAPRINE 10 MG TAB PO PRN (15:10)
--- NOTE | 2022-05-02 15:17 | NUR ---
lab at bedside.
--- NOTE | 2022-05-02 15:46 | NUR ---
Patient will be admitted to care of Dr. Rico. Admited to Telemetry. Will go to room 105-B. Belongings list completed. Report to ANTONY Morris.
[2022-05-02 16:00] VITALS: BP 144/80
--- NOTE | 2022-05-02 16:00 | NUR ---
The patient's care was reviewed and supervised by Radha Celaya RN.
[2022-05-02 16:03] LABS: ALBUMIN 2.8 g/dL (3.4-5.0); ANION GAP 8.9 (8-16); CARBON DIOXIDE 35.4 mmol/L (21-32); TOTAL BILIRUBIN 0.6 mg/dL (0.0-1.0)
[2022-05-02 16:11] LABS: CREATININE 7.2 mg/dL (0.6-1.3); POTASSIUM 6.3 mmol/L (3.5-5.1)
[2022-05-02 16:15] LABS: CHOL/HDL RATIO 1.1 (1-4.5); FREE T4 (FREE THYROXINE) 1.12 ng/dL (0.76-1.46); MAGNESIUM 2.4 mg/dL (1.8-2.4); PHOSPHORUS 5.1 mg/dL (2.5-4.9); THYROID STIMULATING HORMONE 2.44 uIU/mL (0.34-3.74)
[2022-05-02] MEDS: HYDROcodone/APAP 7.5/325 MG 1 TAB PO PRN (16:23)
[2022-05-02] MEDS: levETIRAcetam 500 MG TAB PO SCH (17:00)
[2022-05-02] MEDS: CARBIDOPA/LEVODOPA 10/100 MG 1 TAB PO SCH (17:00)
--- NOTE | 2022-05-02 19:30 | NUR ---
Received pt in bed, asleep, easily arousable by verbal stimuli. denies pain. no acute respiratory distress. skin warm and dry to touch. bed in the lowest and locked position for safety, call light in reach.
[2022-05-02 20:00] VITALS: BP 158/71
[2022-05-02] MEDS: carvediloL 12.5 MG TAB PO SCH (20:10)
[2022-05-02] MEDS: DIVALPROEX SPRINKLES 125 MG CAPDR PO SCH (20:10)
[2022-05-02] MEDS: FERROUS SULFATE 325 MG TABEC PO SCH (20:10)
--- NOTE | 2022-05-02 20:10 | NUR ---
due medications given as ordered.
[2022-05-02] MEDS: TAMSULOSIN 0.4 MG CAP PO SCH (20:11)
[2022-05-02] MEDS: ATORVASTATIN 20 MG TAB PO SCH (20:11)
[2022-05-02] MEDS: lisinopriL 20 MG TAB PO SCH (20:11)
[2022-05-02] MEDS: ONDANSETRON 4 MG/2 ML VIAL IM/IVP PRN (20:17)
--- NOTE | 2022-05-02 22:17 | NUR ---
repositioned patient. head of the bed elevated. call light within reach.
[2022-05-03] VITALS: BP 154/72
--- NOTE | 2022-05-03 | NUR ---
vITAL SIGNS TAKEN AND DOCUMENTED. DENIES PAIN. CALL LIGHT WITHIN REACH.
[2022-05-03] MEDS: HYDROcodone/APAP 7.5/325 MG 1 TAB PO PRN ×2 (01:25→19:18)
--- NOTE | 2022-05-03 02:00 | NUR ---
PATIENT IS ASLEEP. BREATHING EVEN AND UNLABORED. CALL LIGHT IN REACH.
[2022-05-03 04:00] VITALS: BP 124/63
--- NOTE | 2022-05-03 04:00 | NUR ---
VITAL SIGNS TAKEN AND DOCUMENTED. AM CARE RENDERED. MADE COMFORTABLE IN BED. CALL LIGHT IN REACH.
[2022-05-03] MEDS: DIVALPROEX SPRINKLES 125 MG CAPDR PO SCH ×3 (05:20→20:33)
[2022-05-03] MEDS: FERROUS SULFATE 325 MG TABEC PO SCH ×2 (05:31→20:33)
[2022-05-03] MEDS: LEVOTHYROXINE 0.025 MG TAB PO SCH (05:31)
--- NOTE | 2022-05-03 06:17 | NUR ---
PATIENT IS ASLEEP. NO DISTRESS NOTED. ALL NEEDS ATTENDED TO. SAFETY PRECAUTIONS MAINTAINED DURING THE SHIFT. CALL LIGHT REMAINS WITHIN REACH.
[2022-05-03 07:08] LABS: T4 (THYROXINE) 7.5 ug/dL (4.5-12.0)
[2022-05-03 07:25] LABS: BASOPHILS # (AUTO) 0.2 K/uL (0.00-0.22); BASOPHILS % (AUTO) 3.6 % (0.0-2.0); EOSINOPHILS # (AUTO) 0.8 K/uL (0-0.4); EOSINOPHILS % (AUTO) 12.6 % (0.0-4.0); HEMATOCRIT 36.9 % (36-52); HEMOGLOBIN 11.7 g/dL (12.0-18.0); LYMPHOCYTES # (AUTO) 1.4 K/uL (2.0-11.5); LYMPHOCYTES % (AUTO) 21.1 % (20.5-51.1); MEAN CORPUSCULAR HEMOGLOBIN 27 pg (27-31); MEAN CORPUSCULAR HGB CONC 32 g/dL (33-37); MEAN CORPUSCULAR VOLUME 83.6 fL (80-94); MONOCYTES # (AUTO) 0.6 K/uL (0.8-1.0); MONOCYTES % (AUTO) 8.8 % (1.7-9.3); NEUTROPHILS # (AUTO) 3.6 K/uL (1.8-7.7); NEUTROPHILS % (AUTO) 53.9 % (42.2-75.2); PLATELET COUNT (AUTO) 89 K/uL (140-450); RED BLOOD CELL COUNT(AUTO) 4.41 MIL/uL (4.20-6.10); RED CELL DISTRIBUTION WIDTH 18.3 % (11.6-13.7); WHITE BLOOD COUNT (AUTO) 6.7 K/uL (4.8-10.8)
[2022-05-03 07:45] LABS: ANION GAP 8.2 (8-16); POTASSIUM 5.2 mmol/L (3.5-5.1)
[2022-05-03 08:00] VITALS: BP 134/57
[2022-05-03 08:02] LABS: CREATININE 5.3 mg/dL (0.6-1.3)
[2022-05-03] MEDS: AMANTADINE 100 MG CAP PO SCH (09:00)
[2022-05-03] MEDS: PANTOPRAZOLE 40 MG TABEC PO SCH (09:00)
[2022-05-03] MEDS: ASPIRIN 81 MG TAB.CHEW PO SCH (09:00)
[2022-05-03] MEDS: levETIRAcetam 500 MG TAB PO SCH ×3 (09:00→15:05)
[2022-05-03] MEDS: carvediloL 12.5 MG TAB PO SCH ×2 (09:00→20:32)
[2022-05-03] MEDS: CARBIDOPA/LEVODOPA 10/100 MG 1 TAB PO SCH ×3 (09:00→17:22)
[2022-05-03] MEDS: PARoxetine 10 MG TAB PO SCH (09:00)
[2022-05-03] MEDS: GABAPENTIN 300 MG CAP PO SCH (09:00)
[2022-05-03] MEDS: lisinopriL 20 MG TAB PO SCH ×2 (09:00→20:33)
[2022-05-03] MEDS ORDERED: SODIUM ZIRCONIUM CYCLOSILICATE 10 GM POWD.PACK PO SCH (09:00)
[2022-05-03 12:00] VITALS: BP 152/78
[2022-05-03] MEDS: ONDANSETRON 4 MG/2 ML VIAL IM/IVP PRN (15:05)
[2022-05-03 16:00] VITALS: BP 145/73
--- NOTE | 2022-05-03 18:52 | NUR ---
PATIENT IS AWAKE. CHANGED WOUND DRESSING. ALL NEEDS ATTENDED. PRN MEDS FOR PAIN AND NAUSEA GIVEN. WILL ENDORSE TO THE EVENING NURSE FOR CONTINUED CARE.
--- NOTE | 2022-05-03 19:18 | NUR ---
RECEIVED PATIENT AWAKE, ALERT AND ORIENTED. COMPLAINING OF LEFT LEG PAIN, GIVEN PAIN MEDICATION ORDERED. DENIES SHORTNESS OF BREATH. SKIN WARM AND DRY TO TOUCH. BED IN THE LOWEST AND LOCKED POSITION FOR SAFETY, CALL LIGHT IN REACH.
[2022-05-03 20:00] VITALS: BP 143/64
[2022-05-03] MEDS: ATORVASTATIN 20 MG TAB PO SCH (20:32)
[2022-05-03] MEDS: TAMSULOSIN 0.4 MG CAP PO SCH (20:33)
--- NOTE | 2022-05-03 21:30 | NUR ---
CLEANED PATIENT. MADE COMFORTABLE IN BED. CALL LIGHT PLACED WITHIN REACH.
[2022-05-04] VITALS: BP 153/68
[2022-05-04 04:00] VITALS: BP 148/71
--- NOTE | 2022-05-04 04:00 | NUR ---
VITAL SIGNS TAKEN AND DOCUMENTED. DENIES PAIN. CALL LIGHT IN REACH.
[2022-05-04] MEDS: DIVALPROEX SPRINKLES 125 MG CAPDR PO SCH ×3 (04:53→20:46)
[2022-05-04] MEDS: LEVOTHYROXINE 0.025 MG TAB PO SCH (05:48)
[2022-05-04] MEDS: FERROUS SULFATE 325 MG TABEC PO SCH ×2 (05:48→20:46)
--- NOTE | 2022-05-04 06:35 | NUR ---
PATIENT IS ASLEEP. NO DISTRESS NOTED. ALL NEEDS ATTENDED TO. SAFETY PRECAUTIONS MAINTAINED DURING THE SHIFT, CALL LIGHT REMAINED WITHIN REACH.
[2022-05-04 07:33] LABS: BASOPHILS # (AUTO) 0.2 K/uL (0.00-0.22); BASOPHILS % (AUTO) 2.9 % (0.0-2.0); EOSINOPHILS % (AUTO) 13.8 % (0.0-4.0); HEMATOCRIT 38.1 % (36-52); HEMOGLOBIN 12.1 g/dL (12.0-18.0); LYMPHOCYTES # (AUTO) 1.5 K/uL (2.0-11.5); LYMPHOCYTES % (AUTO) 21.6 % (20.5-51.1); MEAN CORPUSCULAR HEMOGLOBIN 27 pg (27-31); MEAN CORPUSCULAR HGB CONC 32 g/dL (33-37); MONOCYTES # (AUTO) 0.6 K/uL (0.8-1.0); MONOCYTES % (AUTO) 8.1 % (1.7-9.3); NEUTROPHILS # (AUTO) 3.7 K/uL (1.8-7.7); NEUTROPHILS % (AUTO) 53.6 % (42.2-75.2); PLATELET COUNT (AUTO) 91 K/uL (140-450); RED BLOOD CELL COUNT(AUTO) 4.53 MIL/uL (4.20-6.10); RED CELL DISTRIBUTION WIDTH 18.3 % (11.6-13.7)
[2022-05-04 07:48] LABS: CARBON DIOXIDE 31.5 mmol/L (21-32); POTASSIUM 5.5 mmol/L (3.5-5.1)
[2022-05-04 08:00] VITALS: BP 147/70
--- NOTE | 2022-05-04 08:16 | NUR ---
PATIENT HAS BEEN SCREENED AND CATEGORIZED HIGH NUTRITION RISK. PATIENT WILL BE SEEN WITHIN 1-2 DAYS OF ADMISSION. 05/02/22-05/04/[address]
[2022-05-04] MEDS: AMANTADINE 100 MG CAP PO SCH (08:53)
[2022-05-04] MEDS: carvediloL 12.5 MG TAB PO SCH ×2 (08:54→20:45)
[2022-05-04] MEDS: PANTOPRAZOLE 40 MG TABEC PO SCH (08:54)
[2022-05-04] MEDS: levETIRAcetam 500 MG TAB PO SCH ×3 (08:54→16:54)
[2022-05-04] MEDS: lisinopriL 20 MG TAB PO SCH ×3 (08:54→20:49)
[2022-05-04] MEDS: PARoxetine 10 MG TAB PO SCH (08:55)
[2022-05-04] MEDS: GABAPENTIN 300 MG CAP PO SCH (08:55)
[2022-05-04] MEDS: CARBIDOPA/LEVODOPA 10/100 MG 1 TAB PO SCH ×3 (08:55→16:54)
[2022-05-04] MEDS: ASPIRIN 81 MG TAB.CHEW PO SCH (08:55)
[2022-05-04 12:00] VITALS: BP 139/74
[2022-05-04] MEDS: ONDANSETRON 4 MG/2 ML VIAL IM/IVP PRN (12:10)
--- NOTE | 2022-05-04 15:02 | NUR ---
05/04/22 RD INITIAL ASSESSMENT COMPLETED. PLEASE REFER TO NUTRITION ASSESSMENT UNDER CARE ACTIVITY FOR ESTIMATED NUTRITIONAL NEEDS. 1. CONTINUE CCHO 60 GMS/RENAL DIET TOLERATED 2. MONITOR PO INTAKE 3. RD TO FOLLOW-UP 3-5 DAYS, MODERATE RISK CARL ADAM, RD
[2022-05-04 16:00] VITALS: BP 139/74
--- NOTE | 2022-05-04 19:30 | NUR ---
RECEIVED PT IN BED, AWAKE, ALERT AND ORIENTED. ONGOING DIALYSIS. DENIES PAIN. DENIES SHORTNESS OF BREATH. SKIN WARM AND DRY TO TOUCH. BED IN THE LOWEST AND LOCKED POSITION FOR SAFETY, CALL LIGHT IN REACH.
[2022-05-04 20:00] VITALS: BP 150/81
[2022-05-04] MEDS: ATORVASTATIN 20 MG TAB PO SCH (20:47)
[2022-05-04] MEDS: TAMSULOSIN 0.4 MG CAP PO SCH (20:47)
--- NOTE | 2022-05-04 21:45 | NUR ---
dialysis done-3l out. bp-139/66 hr-62. patient is asleep at this time. no distress noted.
--- NOTE | 2022-05-04 22:30 | NUR ---
CLEANED PATIENT. MADE COMFORTABLE IN BED. CALL LIGHT IN REACH.
[2022-05-05] VITALS: BP 149/73
--- NOTE | 2022-05-05 00:14 | NUR ---
Patient is asleep. No s/sx of pain nor discomfort. call light in reach.
[2022-05-05 04:00] VITALS: BP 132/56
[2022-05-05] MEDS: DIVALPROEX SPRINKLES 125 MG CAPDR PO SCH ×3 (04:12→20:37)
[2022-05-05] MEDS: HYDROcodone/APAP 7.5/325 MG 1 TAB PO PRN ×3 (04:12→18:46)
[2022-05-05] MEDS: LEVOTHYROXINE 0.025 MG TAB PO SCH (05:43)
[2022-05-05] MEDS: FERROUS SULFATE 325 MG TABEC PO SCH ×2 (05:43→20:38)
--- NOTE | 2022-05-05 06:17 | NUR ---
Patient is asleep. No distress noted. all needs attended to. Safety precautions in place, call light in reach.
[2022-05-05 08:00] VITALS: BP 135/57
[2022-05-05] MEDS: carvediloL 12.5 MG TAB PO SCH ×3 (09:00→20:36)
[2022-05-05] MEDS: GABAPENTIN 300 MG CAP PO SCH (09:01)
[2022-05-05] MEDS: PARoxetine 10 MG TAB PO SCH (09:01)
[2022-05-05] MEDS: AMANTADINE 100 MG CAP PO SCH (09:01)
[2022-05-05] MEDS: lisinopriL 20 MG TAB PO SCH ×2 (09:01→20:37)
[2022-05-05] MEDS: PANTOPRAZOLE 40 MG TABEC PO SCH (09:02)
[2022-05-05] MEDS: CARBIDOPA/LEVODOPA 10/100 MG 1 TAB PO SCH ×3 (09:02→17:00)
[2022-05-05] MEDS: ASPIRIN 81 MG TAB.CHEW PO SCH (09:02)
[2022-05-05] MEDS: levETIRAcetam 500 MG TAB PO SCH ×3 (09:02→17:00)
[2022-05-05 09:07] LABS: BASOPHILS # (AUTO) 0.2 K/uL (0.00-0.22); BASOPHILS % (AUTO) 2.9 % (0.0-2.0); EOSINOPHILS # (AUTO) 0.8 K/uL (0-0.4); EOSINOPHILS % (AUTO) 11.4 % (0.0-4.0); HEMOGLOBIN 12.5 g/dL (12.0-18.0); LYMPHOCYTES # (AUTO) 1.1 K/uL (2.0-11.5); LYMPHOCYTES % (AUTO) 15.9 % (20.5-51.1); MEAN CORPUSCULAR HEMOGLOBIN 26 pg (27-31); MEAN CORPUSCULAR HGB CONC 31 g/dL (33-37); MEAN CORPUSCULAR VOLUME 84.4 fL (80-94); MONOCYTES # (AUTO) 0.5 K/uL (0.8-1.0); MONOCYTES % (AUTO) 7.7 % (1.7-9.3); NEUTROPHILS # (AUTO) 4.4 K/uL (1.8-7.7); NEUTROPHILS % (AUTO) 62.1 % (42.2-75.2); PLATELET COUNT (AUTO) 97 K/uL (140-450); RED BLOOD CELL COUNT(AUTO) 4.74 MIL/uL (4.20-6.10); RED CELL DISTRIBUTION WIDTH 18.6 % (11.6-13.7); WHITE BLOOD COUNT (AUTO) 7.1 K/uL (4.8-10.8)
[2022-05-05 09:14] LABS: ANION GAP 13.4 (8-16); CARBON DIOXIDE 30.7 mmol/L (21-32); POTASSIUM 5.1 mmol/L (3.5-5.1)
[2022-05-05 12:00] VITALS: BP 121/62
[2022-05-05 16:00] VITALS: BP 154/72
--- NOTE | 2022-05-05 19:15 | NUR ---
RECEIVED RECEIVED REPORT FROM DAY SHIFT RN FOR CONTINUITY OF CARE. PT IS AAOX4. PT IS ON RA NOT IN ANY DISTRESS. PT HAS RIGHT HAND 22 GAUGE SALINE LOCK. PT HAS NO COMPLAINS AT THIS TIME. WILL CONTINUE TO MONITOR THE PT.
[2022-05-05 20:00] VITALS: BP 173/78
[2022-05-05] MEDS: ATORVASTATIN 20 MG TAB PO SCH (20:36)
[2022-05-05] MEDS: TAMSULOSIN 0.4 MG CAP PO SCH ×2 (20:37→20:48)
--- NOTE | 2022-05-05 20:50 | NUR ---
PT REFUSED FLOMAX AND WANTS TO SPEAK TO THE DOCTOR ABOUT IT.
--- NOTE | 2022-05-05 20:50 | NUR ---
SCHEDULE MEDICATIONS GIVEN. NO ADVERSE REACTION NOTED. WILL CONTINUE TO MONITOR THE PT.
[2022-05-06] VITALS: BP 152/75
--- NOTE | 2022-05-06 00:41 | NUR ---
PT OBSERVED. PT IS AWAKE. PT IS NOT IN ANY ACUTE DISTRESS. PT HAS NO COMPLAINS AT THIS TIME. WILL CONTINUE TO MONITOR THE PT.
--- NOTE | 2022-05-06 03:15 | NUR ---
PT OBSERVED. PT IS CURRENTLY SLEEPING. PT IS NOT IN ANY ACUTE DISTRESS. CALL LIGHT WITHIN REACH. BED AT THE LOWEST POSITION. WILL CONTINUE TO MONITOR THE PT.
[2022-05-06 04:00] VITALS: BP 139/73
[2022-05-06] MEDS: DIVALPROEX SPRINKLES 125 MG CAPDR PO SCH ×2 (05:47→13:06)
[2022-05-06] MEDS: LEVOTHYROXINE 0.025 MG TAB PO SCH (05:47)
[2022-05-06] MEDS: FERROUS SULFATE 325 MG TABEC PO SCH (05:47)
--- NOTE | 2022-05-06 05:51 | NUR ---
SCHEDULE MEDICATIONS GIVEN. NO ADVERSE REACTION NOTED. WILL CONTINUE TO MONITOR THE PT.
[2022-05-06 06:48] LABS: BASOPHILS # (AUTO) 0.2 K/uL (0.00-0.22); BASOPHILS % (AUTO) 2.7 % (0.0-2.0); EOSINOPHILS # (AUTO) 0.8 K/uL (0-0.4); EOSINOPHILS % (AUTO) 12.2 % (0.0-4.0); HEMATOCRIT 41.3 % (36-52); HEMOGLOBIN 12.9 g/dL (12.0-18.0); LYMPHOCYTES # (AUTO) 1.3 K/uL (2.0-11.5); LYMPHOCYTES % (AUTO) 19.5 % (20.5-51.1); MEAN CORPUSCULAR HEMOGLOBIN 26 pg (27-31); MEAN CORPUSCULAR HGB CONC 31 g/dL (33-37); MEAN CORPUSCULAR VOLUME 83.5 fL (80-94); MONOCYTES # (AUTO) 0.4 K/uL (0.8-1.0); MONOCYTES % (AUTO) 6.2 % (1.7-9.3); NEUTROPHILS % (AUTO) 59.4 % (42.2-75.2); PLATELET COUNT (AUTO) 103 K/uL (140-450); RED BLOOD CELL COUNT(AUTO) 4.94 MIL/uL (4.20-6.10); RED CELL DISTRIBUTION WIDTH 18.7 % (11.6-13.7); WHITE BLOOD COUNT (AUTO) 6.8 K/uL (4.8-10.8)
[2022-05-06 07:00] LABS: ANION GAP 17.1 (8-16); CARBON DIOXIDE 27.7 mmol/L (21-32); POTASSIUM 5.8 mmol/L (3.5-5.1)
--- NOTE | 2022-05-06 07:14 | NUR ---
ENDORSED PT TO DAY SHIFT RN FOR CONTINUITY OF CARE. PT IS STABLE.
[2022-05-06 07:16] LABS: CREATININE 7.6 mg/dL (0.6-1.3)
[2022-05-06 08:00] VITALS: BP 162/68
--- NOTE | 2022-05-06 08:36 | NUR ---
DR. HWANG CAME IN AND SPOKE TO PT. AT BEDSIDE.
[2022-05-06] MEDS: ASPIRIN 81 MG TAB.CHEW PO SCH (08:41)
[2022-05-06] MEDS: levETIRAcetam 500 MG TAB PO SCH ×2 (08:41→13:06)
[2022-05-06] MEDS: PARoxetine 10 MG TAB PO SCH (08:41)
[2022-05-06] MEDS: lisinopriL 20 MG TAB PO SCH (08:41)
[2022-05-06] MEDS: AMANTADINE 100 MG CAP PO SCH (08:42)
[2022-05-06] MEDS: CARBIDOPA/LEVODOPA 10/100 MG 1 TAB PO SCH ×2 (08:42→13:06)
[2022-05-06] MEDS: GABAPENTIN 300 MG CAP PO SCH (08:42)
[2022-05-06] MEDS: PANTOPRAZOLE 40 MG TABEC PO SCH (08:42)
[2022-05-06] MEDS: carvediloL 12.5 MG TAB PO SCH (08:45)
[2022-05-06] MEDS: HYDROcodone/APAP 7.5/325 MG 1 TAB PO PRN ×2 (08:46→13:07)
--- NOTE | 2022-05-06 09:29 | NUR ---
Patient can return to [facility] room 5B after dialysis today. [facility] will arrange transport per the facility.
[2022-05-06] MEDS ORDERED: SODIUM ZIRCONIUM CYCLOSILICATE 10 GM POWD.PACK PO SCH (09:45)
[2022-05-06 12:00] VITALS: BP 111/64
--- NOTE | 2022-05-06 12:35 | NUR ---
HD NURSE -MANISH REPORTED THAT PT. HD WAS DONE AND OUTPUT WAS 2L.
[2022-05-06 13:00] VITALS: BP 132/62
--- NOTE | 2022-05-06 13:55 | NUR ---
patient discharged to [facility]. Instrucstion given. verbalized understanding. report given to Trice HARDY. stable upon discharge.
[2022-05-07] MEDS ORDERED: amLODIPine 5 MG TAB PO SCH (08:00)
== END 2022-05-06 13:55 | DRG 682 ==
LOC: MED 11:05 → MTU 14:32
PROVIDERS: ADMIT Family Medicine; ATTEND Family Medicine
PROC: 5A1D70Z Performance of Urinary Filtration, Intermittent, Less than 6 Hours Per Day (ICD-10-PCS; principal; 2022-05-04)
PROC: 5A1D70Z Performance of Urinary Filtration, Intermittent, Less than 6 Hours Per Day (ICD-10-PCS; 2022-05-06)
DX: N17.0 Acute kidney failure with tubular necrosis (principal); G93.41 Metabolic encephalopathy; J18.9 Pneumonia, unspecified organism; I13.2 Hypertensive heart and chronic kidney disease with heart failure and with stage 5 chronic kidney disease, or end stage renal disease; E87.5 Hyperkalemia; N18.6 End stage renal disease; Z20.822 Contact with and (suspected) exposure to COVID-19; F03.90 Unspecified dementia, unspecified severity, without behavioral disturbance, psychotic disturbance, mood disturbance, and anxiety; E03.9 Hypothyroidism, unspecified; G40.909 Epilepsy, unspecified, not intractable, without status epilepticus; D69.6 Thrombocytopenia, unspecified; L89.159 Pressure ulcer of sacral region, unspecified stage; E87.6 Hypokalemia; E11.22 Type 2 diabetes mellitus with diabetic chronic kidney disease; I50.9 Heart failure, unspecified; Z88.8 Allergy status to other drugs, medicaments and biological substances; Z99.2 Dependence on renal dialysis; Y95 Nosocomial condition
CPT/HCPCS: 36415; 70450; 71045; 80048; 80053; 82140; 82150; 83036; 83690; 83735; 83880; 84100; 84436; 84439; 84443; 84479; 84484; 85025; 85610; 85730; 93005; 96374; 96375; 99285; J1644; J1815; J1885; J2405

== ENCOUNTER 2022-05-27 23:11 | Emergency (ER) | payer OTHER, MEDICAID ==
[~2022-05-27] VITALS: Ht 167.6 cm; Wt 61.2 kg
[2022-05-27 23:11] VITALS: BP 134/88
[~2022-05-27 23:11] MED LIST changes: +CARB1TAB35 PO; +DICL100G5 TP; +SEVE800T6 PO; -VALP-22 PO
--- NOTE | 2022-05-27 23:24 | NUR ---
PT EDMOND BLS. TAKEN TO BED 6
--- NOTE | 2022-05-27 23:58 | NUR ---
Dr. Olivier examining patient.
--- NOTE | 2022-05-28 | NUR ---
he is from [facility], abd pain 03/19, nasusea and vomitting.
[2022-05-28] MEDS ORDERED: ONDANSETRON 4 MG/2 ML VIAL IVP ONE (00:05)
[2022-05-28] MEDS ORDERED: fentaNYL citrate 0.05 MG/ML VIAL IVP ONE ×2 (00:05→05:30)
--- NOTE | 2022-05-28 00:12 | NUR ---
20G IV CATH PLACED R AC BLOOD OBTAINED AND SENT TO LAB
[2022-05-28 00:17] LABS: BASOPHILS # (AUTO) 0.2 K/uL (0.00-0.22); BASOPHILS % (AUTO) 2.6 % (0.0-2.0); EOSINOPHILS # (AUTO) 0.6 K/uL (0-0.4); EOSINOPHILS % (AUTO) 6.1 % (0.0-4.0); HEMOGLOBIN 14.6 g/dL (12.0-18.0); LYMPHOCYTES # (AUTO) 1.4 K/uL (2.0-11.5); LYMPHOCYTES % (AUTO) 15.5 % (20.5-51.1); MEAN CORPUSCULAR HEMOGLOBIN 27 pg (27-31); MEAN CORPUSCULAR HGB CONC 32 g/dL (33-37); MEAN CORPUSCULAR VOLUME 83.5 fL (80-94); MONOCYTES # (AUTO) 0.6 K/uL (0.8-1.0); MONOCYTES % (AUTO) 6.5 % (1.7-9.3); NEUTROPHILS # (AUTO) 6.5 K/uL (1.8-7.7); NEUTROPHILS % (AUTO) 69.3 % (42.2-75.2); PLATELET COUNT (AUTO) 131 K/uL (140-450); RED BLOOD CELL COUNT(AUTO) 5.51 MIL/uL (4.20-6.10); RED CELL DISTRIBUTION WIDTH 18.7 % (11.6-13.7); WHITE BLOOD COUNT (AUTO) 9.3 K/uL (4.8-10.8)
--- NOTE | 2022-05-28 00:20 | NUR ---
PT TAKEN TO CT
--- NOTE | 2022-05-28 00:31 | NUR ---
pt went to ct
[2022-05-28 00:33] LABS: ALBUMIN 3.5 g/dL (3.4-5.0); ANION GAP 14.5 (8-16); CARBON DIOXIDE 32.6 mmol/L (21-32); TOTAL BILIRUBIN 0.7 mg/dL (0.0-1.0)
[2022-05-28 00:38] LABS: CREATININE 8.7 mg/dL (0.6-1.3)
[2022-05-28 00:39] LABS: POTASSIUM 6.1 mmol/L (3.5-5.1)
[2022-05-28] MEDS ORDERED: DEXTROSE 50% 50 ML SYR IVP ONE (01:00)
[2022-05-28] MEDS ORDERED: INSULIN REGULAR, HUMAN 100 UNIT/ML VIAL IVP ONE (01:00)
[2022-05-28] MEDS ORDERED: DOCU1TAB73 PO (04:46)
--- NOTE | 2022-05-28 05:05 | NUR ---
SPOKE WITH RAJ HARDYINCOME TAX ADVISOR NURSE AT [facility] REGARDING PT TRANSPORT. RAJ HARDY AGREED THAT [facility] IS AN APPROPRIATE ALTERNATIVE FOR TRANSPORTING PT. WILL MAKE [facility] ARRIG AT [phone]
--- NOTE | 2022-05-28 05:28 | NUR ---
Dr. Olivier examining patient.
[2022-05-28] MEDS ORDERED: fentaNYL citrate 0.05 MG/ML VIAL ONE (05:35)
[2022-05-28 06:32] VITALS: BP 149/80
--- NOTE | 2022-05-28 06:36 | NUR ---
Patient discharged with v/s stable. Written and verbal after care instructions given and explained. Patient verbalized understanding. Wheel Chair Assisted with to alf. All questions addressed prior to discharge. Advised to follow up with PMD.
[2022-05-29] MEDS ORDERED: ASPI-1822 PO (16:37)
[2022-05-29] MEDS ORDERED: LEVE750T25 PO (16:37)
[2022-05-29] MEDS ORDERED: ACET-9525 PO (16:37)
[2022-05-29] MEDS ORDERED: ACET-10509 PO (16:37)
[2022-05-29] MEDS ORDERED: MULT-1944 PO (16:37)
[2022-05-29] MEDS ORDERED: BEN10 PO (21:06)
[2022-05-29] MEDS ORDERED: ONDA-188 PO (21:06)
== END 2022-05-28 06:36 | disposition home or self-care (01) ==
LOC: MED 23:11
DX: R10.30 Lower abdominal pain, unspecified (principal); E03.9 Hypothyroidism, unspecified; N18.9 Chronic kidney disease, unspecified; I10 Essential (primary) hypertension; E11.9 Type 2 diabetes mellitus without complications; E78.5 Hyperlipidemia, unspecified; E87.5 Hyperkalemia; Z79.4 Long term (current) use of insulin; Z79.899 Other long term (current) drug therapy
CPT/HCPCS: 36415; 74176; 80053; 83690; 85025; 96374; 96375; 96376; 99285; J1815; J2405; J3010

== ENCOUNTER 2022-05-29 15:52 | Emergency (ER) | payer OTHER, MEDICAID ==
[~2022-05-29] VITALS: Ht 167.6 cm; Wt 61.2 kg
[~2022-05-29 15:52] MED LIST changes: +DOCU1TAB73 PO
[2022-05-29 15:58] VITALS: BP 189/90
--- NOTE | 2022-05-29 16:11 | NUR ---
BIBA BLS TO ER BED 7
--- NOTE | 2022-05-29 16:15 | NUR ---
56[facility] C/O N/V-BLOOD AND SHARP 10/10 LOWER ABDOMINAL PAIN XLASTNIGHT. REPORTS SUDDEN ONSET W/ RADIATION TO L LEG. DENIES RELIEF AFTER TRAMADOL. ABDOMEN FLAT, NON TENDER, ACTIVE X4. LEG W/O VISIBLE INJURY. SHUNT IN L UPPER ARM. PT RECENTLY SEEN AND D/C ABDOMINAL PAIN AND HYPERKALEMIA. DENIES CHEST PAIN, SOB, FEVER OR CHILLS. PT AAOX4, IN VISIBLE DISTRESS AND GUARDING ABDOMEN. ON MUSEUM SECURITY CHIEF. BED AT LOWEST POSITION , BED RAILS UPX2. SEIZURE PADS IN PLACE. HX: ESRD, HTN , DM, GERD, HLD,HYPOTHYROIDISM, ANEMIA, PARKINSONS, SCHIZO, SEIZURE ALLERGIES: METFORMIN DIALYSIS (M/W/F)
--- NOTE | 2022-05-29 16:27 | NUR ---
MD MCCRARY AT BEDSIDE FOR EVALUATION
[2022-05-29] MEDS ORDERED: ACET-10509 PO (16:37)
[2022-05-29] MEDS ORDERED: LEVE750T25 PO (16:37)
[2022-05-29] MEDS ORDERED: ACET-9525 PO (16:37)
[2022-05-29] MEDS ORDERED: ASPI-1822 PO (16:37)
[2022-05-29] MEDS ORDERED: MULT-1944 PO (16:37)
[2022-05-29] MEDS ORDERED: ONDANSETRON 4 MG ODT PO ONE (16:40)
[2022-05-29] MEDS ORDERED: DICYCLOMINE 20 MG/2 ML VIAL IM ONE (16:40)
--- NOTE | 2022-05-29 16:40 | NUR ---
pt encouraged to give urine sample. urinal left at bedside
--- NOTE | 2022-05-29 16:44 | NUR ---
LAB AT BEDSIDE
[2022-05-29 16:52] LABS: BASOPHILS # (AUTO) 0.1 K/uL (0.00-0.22); BASOPHILS % (AUTO) 1.4 % (0.0-2.0); EOSINOPHILS # (AUTO) 0.2 K/uL (0-0.4); EOSINOPHILS % (AUTO) 2.1 % (0.0-4.0); HEMATOCRIT 45.5 % (36-52); HEMOGLOBIN 14.7 g/dL (12.0-18.0); LYMPHOCYTES % (AUTO) 12.6 % (20.5-51.1); MEAN CORPUSCULAR HEMOGLOBIN 27 pg (27-31); MEAN CORPUSCULAR HGB CONC 32 g/dL (33-37); MEAN CORPUSCULAR VOLUME 83.7 fL (80-94); MONOCYTES # (AUTO) 0.4 K/uL (0.8-1.0); MONOCYTES % (AUTO) 5.6 % (1.7-9.3); NEUTROPHILS # (AUTO) 6.1 K/uL (1.8-7.7); NEUTROPHILS % (AUTO) 78.3 % (42.2-75.2); PLATELET COUNT (AUTO) 121 K/uL (140-450); RED BLOOD CELL COUNT(AUTO) 5.43 MIL/uL (4.20-6.10); RED CELL DISTRIBUTION WIDTH 18.6 % (11.6-13.7); WHITE BLOOD COUNT (AUTO) 7.7 K/uL (4.8-10.8)
[2022-05-29 17:12] LABS: ALBUMIN 3.5 g/dL (3.4-5.0); ANION GAP 17.5 (8-16); CARBON DIOXIDE 31.9 mmol/L (21-32); POTASSIUM 5.4 mmol/L (3.5-5.1); TOTAL BILIRUBIN 0.8 mg/dL (0.0-1.0)
[2022-05-29 17:14] LABS: CREATININE 6.9 mg/dL (0.6-1.3)
--- NOTE | 2022-05-29 17:34 | NUR ---
pt re encouraged to give urine. provided with water
--- NOTE | 2022-05-29 18:19 | NUR ---
56/M BIBA FROM [facility] WITH C/O ABDOMINAL PAIN, LEFT LEG PAIN AND N/V SINCE YESTERDAY. PATIENT REPORTS HE WAS GIVEN TRAMADOL WITH NO RELIEF OF PAIN, DENIES CP, SOB, FEVERS. PATIENT WITH DIALYSIS ACCESS TO LEFT UPPER ARM, STATES HE RECEIVES DIALYSIS MON, WED, FRI. UPON ARRIVAL PATIENT PLACED IN GOWN ON BEDSIDE TELEPHONE AD TAKER.
[2022-05-29] MEDS ORDERED: HYDROcodone/APAP 5/325 MG 1 TAB TAB PO ONE (18:25)
--- NOTE | 2022-05-29 19:34 | NUR ---
REPORT GIVEN TO JOSE ZUNIGA. TRANSFER OF CARE AT THIS TIME
[2022-05-29] MEDS ORDERED: BEN10 PO (21:06)
[2022-05-29] MEDS ORDERED: ONDA-188 PO (21:06)
[2022-05-29 21:17] VITALS: BP 150/75
--- NOTE | 2022-05-29 21:17 | NUR ---
Patient discharged with v/s stable. Written and verbal after care instructions given and explained. Patient verbalized understanding. Wheel Chair Assisted with to fdc. All questions addressed prior to discharge. Advised to follow up with PMD.
--- NOTE | 2022-05-29 21:17 | NUR ---
SPOKE WITH MARGARETH HARDY AT [facility] REGARDING TRANSPORTION FOR PT BACK TO [facility]. [facility] TO TRANSPORT PT , NURSING STAFF IS AWARE AND WILL BE RECIEVING PT
== END 2022-05-29 21:17 | disposition home or self-care (01) ==
LOC: MED 15:52
DX: K52.9 Noninfective gastroenteritis and colitis, unspecified (principal); E11.22 Type 2 diabetes mellitus with diabetic chronic kidney disease; I12.0 Hypertensive chronic kidney disease with stage 5 chronic kidney disease or end stage renal disease; N18.6 End stage renal disease; F20.9 Schizophrenia, unspecified; G20 Parkinson's disease; E78.5 Hyperlipidemia, unspecified; E87.5 Hyperkalemia; Z79.899 Other long term (current) drug therapy; Z99.2 Dependence on renal dialysis; Z79.4 Long term (current) use of insulin; Z88.8 Allergy status to other drugs, medicaments and biological substances; Z79.82 Long term (current) use of aspirin
CPT/HCPCS: 36415; 80053; 83690; 85025; 96372; 99285; J0500; Q0162

== ENCOUNTER 2022-09-14 11:29 | Emergency (ER) | payer BC, MEDICAID ==
[~2022-09-14] VITALS: Ht 167.6 cm; Wt 59.0 kg
[~2022-09-14 11:29] MED LIST changes: +ACET-10509 PO; +ACET-9525 PO; -ASPI-1205 PO; +ASPI-1822 PO; +BEN10 PO; -KEP500 PO; +LEVE750T25 PO; +MULT-1944 PO; +ONDA-188 PO
[2022-09-14] MEDS ORDERED: ONDANSETRON 4 MG/2 ML VIAL IM ONE (11:40)
[2022-09-14 11:57] VITALS: BP 157/70
[2022-09-14 12:02] LABS: BASOPHILS # (AUTO) 0.2 K/uL (0.00-0.22); BASOPHILS % (AUTO) 2.9 % (0.0-2.0); EOSINOPHILS # (AUTO) 0.6 K/uL (0-0.4); EOSINOPHILS % (AUTO) 8.9 % (0.0-4.0); LYMPHOCYTES % (AUTO) 14.2 % (20.5-51.1); MEAN CORPUSCULAR HEMOGLOBIN 30 pg (27-31); MEAN CORPUSCULAR HGB CONC 33 g/dL (33-37); MEAN CORPUSCULAR VOLUME 92.7 fL (80-94); MONOCYTES # (AUTO) 0.6 K/uL (0.8-1.0); NEUTROPHILS # (AUTO) 4.7 K/uL (1.8-7.7); PLATELET COUNT (AUTO) 103 K/uL (140-450); RED BLOOD CELL COUNT(AUTO) 4.31 MIL/uL (4.20-6.10); RED CELL DISTRIBUTION WIDTH 16.8 % (11.6-13.7); WHITE BLOOD COUNT (AUTO) 7.1 K/uL (4.8-10.8)
--- NOTE | 2022-09-14 12:10 | NUR ---
PT TO CT VIA [facility].
--- NOTE | 2022-09-14 12:23 | NUR ---
57 Y/O M EDMOND FROM [facility] C/O NVD S/P 1 HOUR. PER STAFF STATED1 EPISODE OF NV, 1 EPISODE OF DIARRHEA, DENIES ANY RECENT ATB USE,. DENIES ANY BLOOD IN VOMITUS AND DIARRHEA. ALLERGY: METFORMIN PMH: ESRD ( DIALYSIS MWF LEFT AV SHUNT), DM, HDL, HTN
[2022-09-14 12:44] LABS: ANION GAP 14.8 (8-16); CARBON DIOXIDE 30.5 mmol/L (21-32); POTASSIUM 4.3 mmol/L (3.5-5.1); TOTAL BILIRUBIN 1.2 mg/dL (0.0-1.0)
[2022-09-14 12:48] LABS: CREATININE 6.8 mg/dL (0.6-1.3)
--- NOTE | 2022-09-14 15:42 | NUR ---
SPOKE WITH THE PT FACILITY, PER DR MCCALL THE FACILITY WILL TRY TO SET UP DIALYSIS FOR TOMORROW.
--- NOTE | 2022-09-14 17:31 | NUR ---
SPOKE TO JAZMÍN OF [facility], INFORMED OF PT DISCHARGE AND CONDITION
[2022-09-14 18:11] VITALS: BP 138/67
--- NOTE | 2022-09-14 18:13 | NUR ---
Patient discharged with v/s stable. Written and verbal after care instructions given and explained. Patient verbalized understanding. Wheel Chair Assisted with to custodial. All questions addressed prior to discharge. Advised to follow up with PMD.
--- NOTE | 2022-09-14 18:13 | NUR ---
The patient's care was reviewed and supervised by Jethro Carcamo RN.
== END 2022-09-14 18:11 | disposition home or self-care (01) ==
LOC: MED 11:29
DX: K52.9 Noninfective gastroenteritis and colitis, unspecified (principal); E11.22 Type 2 diabetes mellitus with diabetic chronic kidney disease; I12.0 Hypertensive chronic kidney disease with stage 5 chronic kidney disease or end stage renal disease; N18.6 End stage renal disease; F03.90 Unspecified dementia, unspecified severity, without behavioral disturbance, psychotic disturbance, mood disturbance, and anxiety; E03.9 Hypothyroidism, unspecified; Z86.69 Personal history of other diseases of the nervous system and sense organs; Z99.2 Dependence on renal dialysis; Z79.899 Other long term (current) drug therapy; Z79.82 Long term (current) use of aspirin; Z79.4 Long term (current) use of insulin; Z79.891 Long term (current) use of opiate analgesic; Z88.8 Allergy status to other drugs, medicaments and biological substances
CPT/HCPCS: 36415; 74176; 80053; 83690; 84484; 85025; 96372; 99285; J2405

== ENCOUNTER 2022-10-01 17:14 | Emergency (ER) | payer BC, MEDICAID ==
[~2022-10-01] VITALS: Ht 165.1 cm; Wt 65.8 kg
[2022-10-01 17:28] VITALS: BP 155/75
--- NOTE | 2022-10-01 18:00 | NUR ---
patient has decubitus ulcer to sacral area, photo taken
--- NOTE | 2022-10-01 18:27 | NUR ---
Dr. Olivier evaluating patient at bedside.
[2022-10-01 18:58] LABS: BASOPHILS # (AUTO) 0.2 K/uL (0.00-0.22); EOSINOPHILS # (AUTO) 0.8 K/uL (0-0.4); EOSINOPHILS % (AUTO) 11.6 % (0.0-4.0); HEMATOCRIT 35.5 % (36-52); HEMOGLOBIN 11.6 g/dL (12.0-18.0); LYMPHOCYTES % (AUTO) 14.8 % (20.5-51.1); MEAN CORPUSCULAR HEMOGLOBIN 30 pg (27-31); MEAN CORPUSCULAR HGB CONC 33 g/dL (33-37); MEAN CORPUSCULAR VOLUME 92.8 fL (80-94); MONOCYTES # (AUTO) 0.7 K/uL (0.8-1.0); MONOCYTES % (AUTO) 10.1 % (1.7-9.3); NEUTROPHILS # (AUTO) 4.1 K/uL (1.8-7.7); NEUTROPHILS % (AUTO) 60.5 % (42.2-75.2); PLATELET COUNT (AUTO) 103 K/uL (140-450); RED BLOOD CELL COUNT(AUTO) 3.83 MIL/uL (4.20-6.10); RED CELL DISTRIBUTION WIDTH 16.5 % (11.6-13.7); WHITE BLOOD COUNT (AUTO) 6.8 K/uL (4.8-10.8)
[2022-10-01 19:14] LABS: ALBUMIN 2.9 g/dL (3.4-5.0); ANION GAP 8.8 (8-16); CARBON DIOXIDE 35.2 mmol/L (21-32)
[2022-10-01 19:19] LABS: CREATININE 4.6 mg/dL (0.6-1.3)
--- NOTE | 2022-10-01 19:45 | NUR ---
57 Y/O M presents with bilateral foot pain 10/10 throbbing, numbing of face with knee pain. pt has a R upper cath in chest AV fistula. pt has dialysis MWF and finished dialysis treatment once the numbing of the face started. pt does have a sacrum wound. pt is A&Ox3, swelling around AV fistula. pt is ambulatory with assist of wheelchair. pt stated he feels constipated and has weakness. pmh- seizures allergies-metformin
--- NOTE | 2022-10-01 19:55 | NUR ---
pt resting in room, seizure pads on bed.
--- NOTE | 2022-10-01 20:30 | NUR ---
pt yelling "ouch ouch im in pain, nurse nurse." nurse walked in room, pt stated he was in pain in bilateral feet and asked for pain medication.
--- NOTE | 2022-10-01 20:30 | NUR ---
pt stated he was having 10/10 pain in bilateral foot. ER MD notified
[2022-10-01] MEDS ORDERED: HYDROcodone/APAP 5/325 MG 1 TAB TAB PO ONE (20:55)
--- NOTE | 2022-10-01 21:25 | NUR ---
pt stated pain med helped and relieved pain. pt resting in room, awaiting transfer
--- NOTE | 2022-10-01 21:30 | NUR ---
Pnocho hollins in ED - 10/02/22 at 0453 by COLINPB pt tolerated pain med well. pt resting in room, respirations even and unlabored.
--- NOTE | 2022-10-01 21:50 | NUR ---
pt tolerated pain med well. in room resting, respirations even and unlabored
--- NOTE | 2022-10-02 05:22 | NUR ---
pt tolerated food well
[2022-10-02] MEDS ORDERED: IBUPROFEN 600 MG TAB PO ONE (05:40)
--- NOTE | 2022-10-02 06:36 | NUR ---
pt awaiting transfer. resting in room
--- NOTE | 2022-10-02 07:27 | NUR ---
Pt report given to Lsea ZUNIGA. Transfer of care at this time.
--- NOTE | 2022-10-02 07:28 | NUR ---
REPORT RECEIVED FROM JUANITA ZUNIGA. ASSUMED CARE AT THIS TIME
--- NOTE | 2022-10-02 07:45 | NUR ---
pt at rest w/ eyes closed. respirations even and unlabored. on billing supervisor. bed at lowest position, bed rails upx2. seizure pads in place.
--- NOTE | 2022-10-02 08:30 | NUR ---
pt provided w/ breakfast. pt awake and eating in bed.
--- NOTE | 2022-10-02 09:05 | NUR ---
[facility] CONTACTED. UPDATED ON PT STATUS AND ETA. REPORT GIVEN TO NADIA SANTACRUZ.
--- NOTE | 2022-10-02 10:00 | NUR ---
PT W/ NEW FEET PAIN ONSET. MADE AWARE
[2022-10-02] MEDS ORDERED: HYDROcodone/APAP 5/325 MG 1 TAB TAB PO ONE (10:05)
--- NOTE | 2022-10-02 10:59 | NUR ---
pt at rest w/ eyes closed. respirations even and unlabored. on making machine operator
--- NOTE | 2022-10-02 12:14 | NUR ---
pt provided w/ lunch. pt awake, repositioned and eating in bed
[2022-10-02 13:26] VITALS: BP 140/64
--- NOTE | 2022-10-02 13:26 | NUR ---
Patient discharged with v/s stable. Written and verbal after care instructions FOR PERIPHERAL NEUROPATHY given and explained. Patient verbalized understanding. [facility] TRAN[facility]ORTED to [facility]. All questions addressed prior to discharge. Advised to follow up with PMD.
== END 2022-10-02 13:26 ==
LOC: MED 17:14
DX: R20.2 Paresthesia of skin (principal); E11.22 Type 2 diabetes mellitus with diabetic chronic kidney disease; I12.0 Hypertensive chronic kidney disease with stage 5 chronic kidney disease or end stage renal disease; N18.6 End stage renal disease; Z99.2 Dependence on renal dialysis; F03.90 Unspecified dementia, unspecified severity, without behavioral disturbance, psychotic disturbance, mood disturbance, and anxiety; Z86.69 Personal history of other diseases of the nervous system and sense organs; Z79.899 Other long term (current) drug therapy; Z79.82 Long term (current) use of aspirin; Z79.4 Long term (current) use of insulin; Z88.8 Allergy status to other drugs, medicaments and biological substances
CPT/HCPCS: 36415; 80053; 85025; 99285